=== PATIENT | female | born 1970 | race Caucasian/White ===

== ENCOUNTER 2016-05-19 | Outpatient (CLI) | payer MEDICAID | END 2016-05-19 11:15 | disposition home or self-care (01) ==

== ENCOUNTER 2016-05-24 13:04 | Outpatient (CLI) | payer MEDICAID | END 2016-05-24 13:05 | disposition home or self-care (01) | DX: R60.0 Localized edema (principal); R53.83 Other fatigue ==

== ENCOUNTER 2016-05-26 09:33 | Outpatient (CLI) | payer MEDICAID | END 2016-05-26 09:34 | disposition home or self-care (01) | DX: R13.19 Other dysphagia (principal) ==

== ENCOUNTER 2016-07-04 10:52 | Outpatient (CLI) | payer MEDICAID | END 2016-07-04 10:53 | disposition home or self-care (01) | DX: M17.11 Unilateral primary osteoarthritis, right knee (principal) ==

== ENCOUNTER 2016-10-03 13:06 | Outpatient (CLI) | payer MEDICAID | END 2016-10-03 13:07 | disposition home or self-care (01) | LOC: SC 13:06 | PROVIDERS: ATTEND Internal Medicine Pulmonary Disease | DX: G47.33 Obstructive sleep apnea (adult) (pediatric) (principal) | CPT/HCPCS: 99212; 99213 ==

== ENCOUNTER 2016-12-22 11:00 | Outpatient (CLI) | payer MEDICAID | END 2016-12-22 23:59 | disposition home or self-care (01) | LOC: RT.N 11:00 | PROVIDERS: ATTEND Family Medicine | DX: R07.9 Chest pain, unspecified (principal) | CPT/HCPCS: 93005 ==

== ENCOUNTER 2016-12-27 18:43 | Emergency (ER) | payer MEDICAID ==
[2016-12-27 19:38] VITALS: BP 149/94
--- NOTE | 2016-12-27 20:13 | ED Physician Documentation ---
PD HPI LOWER EXT INJURY - Stated complaint Stated Complaint: LUMP IN RT FOOT - Chief complaint Chief Complaint: Ext Problem - History obtained from History obtained from: Patient - History of Present Illness PD HPI LOW EXT INJURY LOCATION: Left, Foot Where injury occurred: Home Timing - onset: Yesterday Timing - details: Abrupt onset Worsened by: Moving, Palpating Contributing factors: No: Anticoagulated, Prior ortho surgery, Prosthetic joint Similar symptoms before: No diagnosis Recently seen: Not recently seen - Additional information Additional information: Patient is a 46 year old female who is presenting to the emergency department for foot pain. Patient states that she noticed it yesterday when she started walking on it. Patient denied any trauma. Patient states that she has had warts taken care of in the past. Review of Systems Constitutional: denies: Fever, Chills Eyes: reports: Reviewed and negative Ears: reports: Reviewed and negative Nose: reports: Reviewed and negative Throat: reports: Reviewed and negative Cardiac: denies: Chest pain / pressure GI: denies: Abdominal Pain, Nausea, Vomiting : reports: Reviewed and negative Skin: reports: Lesions. 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 : None HEENT: None Psych: Bipolar disorder Musculoskeletal: Osteoarthritis, Chronic back pain - Past Surgical History Past Surgical History: Yes General: Colonoscopy Ortho: Arthroscopic surgery, Spine surgery HEENT: Tonsil/Adenoidectomy - Present Medications Home Medications: Ambulatory Orders Medication Instructions Recorded Confirmed Ibuprofen [Motrin] 800 mg PO Q8H PRN #30 tablet 02/06/15 12/27/16 Tiotropium [Spiriva] 1 puffs INH DAILY #1 inhaler 02/06/15 12/27/16 Topiramate [Topamax] 200 mg PO DAILY #30 tablet 02/06/15 12/27/16 Albuterol Sulf [Ventolin Hfa 2 puffs INH PRN PRN 02/22/16 12/27/16 Inhaler] Beclomethasone Dipropionate [Qvar] 1 puffs INH BID 02/22/16 12/27/16 Lisinopril 20 mg PO DAILY 02/22/16 12/27/16 Lovastatin 10 mg PO DAILY 02/22/16 12/27/16 Methocarbamol [Robaxin] 1 tab PO TID 02/22/16 12/27/16 HYDROcodone/ACET 10/325 [[place] 10 3 - 4 tab PO PRN PRN 12/27/16 12/27/16 mg/325 mg] Nortriptyline [Pamelor] 2 tab PO DAILY 12/27/16 12/27/16 Pregabalin [Lyrica] 1 tab PO DAILY 12/27/16 12/27/16 Salicylic Acid [Wart Remover] 1 each TP DAILY #14 adh..patch 12/27/16 - Allergies Allergies/Adverse Reactions: Allergies Allergy/AdvReac Type Severity Reaction Status Date / Time celecoxib [From Celebrex] Allergy Unknown Verified 12/27/16 19:46 codeine Allergy Itching Verified 12/27/16 19:46 doxycycline Allergy Emesis Verified 12/27/16 19:46 morphine Allergy Hallucinati Verified 12/27/16 19:46 ons - Social History Does the pt smoke?: Yes Smoking Status: Current every day smoker Does the pt drink ETOH?: No Does the pt have substance abuse?: No - Immunizations Immunizations are current?: Yes - POLST Patient has POLST: No PD ED PE NORMAL - Vitals Vital signs reviewed: Yes - General General: Alert and oriented X 3, No acute distress - HEENT HEENT: Atraumatic, PERRL - Neck Neck: Supple, no meningeal sign - Cardiac Cardiac: RRR, No murmur - Respiratory Respiratory: No respiratory distress - Abdomen Abdomen: Soft - Derm Derm: Normal color, No rash - Extremities Extremities: No deformity - Neuro Neuro: Alert and oriented X 3, No motor deficit, No sensory deficit, Normal speech - Psych Psych: Normal mood, Normal affect PD ED PE EXPANDED - Extremities Extremities: Left foot (wart on plantar surface of left foot) Results - Vitals Vitals: Vital Signs - 24 hr 12/27/16 19:35 Temperature 36.6 C Heart Rate 93 Respiratory 18 Rate Blood Pressure 149/94 H O2 Saturation 99 Oxygen O2 Source Room air PD MEDICAL DECISION MAKING - ED course Complexity details: reviewed old records, reviewed results, considered differential, d/w patient ED course: Patient was seen and examined at bedside. Patient was well appearing and in no distress. Patient had a cut out bandage made for her lesion. patient required no further work up and was stable for discharge with outpatient follow up. Departure - Departure Disposition: 01 Home, Self Care Clinical Impression: Plantar wart of left foot Condition: Good Instructions: ED Warts Plantar Follow-Up: Vinicio Thrasher MD [Primary Care Provider] - Within 3 Days Prescriptions: Salicylic Acid [Wart Remover] 1 each TP DAILY #14 adh..patch Comments: Your symptoms today are being caused by a plantars wart. there is no abscess of fluid collection. You should wear the pads and follow up with your doctor on at your appointment. You can take motrin or tylenol as needed for pain. Discharge Date/Time: 12/27/16 20:22
== END 2016-12-27 20:22 | disposition home or self-care (01) ==
LOC: ED 18:43
DX: B07.0 Plantar wart (principal); F17.200 Nicotine dependence, unspecified, uncomplicated
CPT/HCPCS: 99283

== ENCOUNTER 2017-04-06 10:52 | Outpatient (CLI) | payer MEDICAID | END 2017-04-06 10:53 | disposition home or self-care (01) | LOC: SC 10:52 | PROVIDERS: ATTEND Nurse Practitioner Family | DX: G47.33 Obstructive sleep apnea (adult) (pediatric) (principal); R03.0 Elevated blood-pressure reading, without diagnosis of hypertension | CPT/HCPCS: 99212; 99214 ==

== ENCOUNTER 2017-05-23 11:17 | Outpatient (CLI) | payer MEDICAID | END 2017-05-23 11:18 | disposition home or self-care (01) | LOC: SC 11:17 | PROVIDERS: ATTEND Internal Medicine Pulmonary Disease | DX: G47.33 Obstructive sleep apnea (adult) (pediatric) (principal) | CPT/HCPCS: 99212; 99213 ==

== ENCOUNTER 2017-08-25 08:00 | Outpatient (CLI) | payer MEDICAID ==
[2017-08-25 19:07] LABS: BASOPHILS # (AUTO) 0.1 10^3/uL (0.0-0.1); BASOPHILS % (AUTO) 0.8 %; EOSINOPHILS # (AUTO) 0.2 10^3/uL (0.0-0.7); EOSINOPHILS % (AUTO) 1.4 %; HGB - HEMOGLOBIN 12.8 g/dL (12.0-16.0); LYMPHOCYTES # (AUTO) 2.4 10^3/uL (1.5-3.5); MEAN CORPUSCULAR HEMOGLOBIN 28.7 pg (27.0-31.0); MEAN CORPUSCULAR HGB CONC 31.9 g/dL (32.0-36.0); MEAN CORPUSCULAR VOLUME 89.9 fL (81.0-99.0); MEAN PLATELET VOLUME 9.9 fL (7.9-10.8); MONOCYTES # (AUTO) 0.8 10^3/uL (0.0-1.0); MONOCYTES % (AUTO) 6.1 %; NEUTROPHILS # (AUTO) 9.1 10^3/uL (1.5-6.6); NEUTROPHILS % (AUTO) 72.7 %; PLT - PLATELET COUNT 292 10^3/uL (130-450); RED BLOOD COUNT 4.47 10^6/uL (4.20-5.40); RED CELL DISTRIBUTION WIDTH 16.2 % (12.0-15.0); WHITE BLOOD COUNT 12.5 x10^3/uL (4.8-10.8)
[2017-08-25 19:22] LABS: ALBUMIN 3.5 g/dL (3.2-5.5); ALBUMIN/GLOBULIN RATIO 0.9 (1.0-2.2); ALKALINE PHOSPHATASE 100 IU/L (42-121); ALT ALANINE AMINOTRANSFERASE 20 IU/L (10-60); AST ASPARTATE AMINOTRANSFERASE 27 IU/L (10-42); BILIRUBIN,TOTAL 0.4 mg/dL (0.2-1.0); BUN - BLOOD UREA NITROGEN 15 mg/dL (6-20); CALCIUM 8.7 mg/dL (8.5-10.3); CARBON DIOXIDE - CO2 25 mmol/L (21-32); CHLORIDE 105 mmol/L (101-111); CHOL/HDL RATIO 4.1 (<4.4); CHOLESTEROL 156 mg/dL; CREATININE 0.9 mg/dL (0.4-1.0); GFR - MDRD 67 (>89); GLUCOSE 101 mg/dL (70-100); HDL CHOLESTEROL 38 mg/dL; LDL CHOLESTEROL,CALCULATED 81 mg/dL; LDL/HDL RATIO 2.1 (<4.4); SODIUM 138 mmol/L (135-145); TOTAL PROTEIN 7.2 g/dL (6.7-8.2); VLDL CHOLESTEROL 37 mg/dL
== END 2017-08-25 08:01 ==
LOC: LAB.N 08:00
PROVIDERS: ATTEND Family Medicine
DX: E66.9 Obesity, unspecified (principal); I10 Essential (primary) hypertension; E78.5 Hyperlipidemia, unspecified
CPT/HCPCS: 36415; 80053; 80061; 83721; 84443; 85025

== ENCOUNTER 2017-10-04 10:05 | Outpatient (CLI) | payer MEDICAID ==
--- NOTE | 2017-10-04 10:43 | XRAY Report ---
Procedure Date: 10/04/2017 Accession Number: [id number] / [id number] Procedure: XR - Foot 3 View LT CPT Code: FULL RESULT: EXAM: Foot 3 View LT DATE: 10/04/2017 10:20 AM CLINICAL HISTORY: FOOT PAIN COMPARISON: None. TECHNIQUE: 3 views. FINDINGS: Bones: Lucent line disrupting the navicular cortex through together with increased sclerosis, suggestive of stress fracture. Calcaneal heel spur. Joints: Normal. No subluxations. Soft Tissues: Midfoot soft tissue swelling. IMPRESSION: Suspect stress fracture of the left navicular. Clinically confirm by point tenderness on palpation. RADIA
== END 2017-10-04 10:06 | disposition home or self-care (01) ==
LOC: DI 10:05
PROVIDERS: ATTEND Anesthesiology Pain Medicine
DX: M79.672 Pain in left foot (principal)

== ENCOUNTER 2017-11-23 09:22 | Outpatient (CLI) | payer MEDICAID ==
--- NOTE | 2017-11-24 09:29 | XRAY Report ---
Reason: DEGENERATIVE JOINT DISEASE,KNEE PAIN BILATERAL Procedure Date: 11/23/2017 Accession Number: [id number] / [id number] Procedure: XR - Knee 3 View BILAT CPT Code: FULL RESULT: EXAMS: 1. Right Knee Radiography 2. Left Knee Radiography EXAM DATE:11/23/2017 09:46 AM. CLINICAL HISTORY:DEGENERATIVE JOINT DISEASE,KNEE PAIN BILATERAL. COMPARISON: 07/04/2016 right knee. TECHNIQUE: 3 views each. FINDINGS: Right Knee: Bones: No fractures or bone lesions. Joints: Advanced patellofemoral degenerative change with exuberant spurring. Medial greater than lateral knee joint space narrowing, spurring, and chondrocalcinosis. No joint effusion. Patellar enthesophytes. Soft Tissues: Unremarkable Left Knee: Bones: No fractures or bone lesions. Joints: Degenerative narrowing, and spurring most marked patellofemoral articulation and medial knee joint. Chondrocalcinosis. Patellar enthesophytes. No effusion. Soft Tissues: Unremarkable. IMPRESSION: Advanced osteoarthritic degenerative change bilateral knees, most severe at the patellofemoral articulations. RADIA
== END 2017-11-23 09:23 | disposition home or self-care (01) ==
LOC: DI 09:22
PROVIDERS: ATTEND Family Medicine
DX: M17.0 Bilateral primary osteoarthritis of knee (principal)

== ENCOUNTER 2018-01-08 10:30 | Outpatient (CLI) | payer MEDICAID ==
--- NOTE | 2018-01-08 16:39 | DEXA Report ---
Reason: LUMBAGO W/SCIATICA, LEFT SIDE Procedure Date: 01/08/2018 Accession Number: [id number] / [id number] Procedure: DEX - Dexa Spine and/or Hip CPT Code: FULL RESULT: EXAM: Dexa Spine and/or Hip DATE: 01/08/2018 11:10 AM CLINICAL HISTORY: LUMBAGO W/SCIATICA, LEFT SIDE. Inflammatory arthritis. TECHNIQUE: Dual energy x-ray absorptiometry (DXA) was performed on a [facility]. Regions measured are the AP Spine, femoral neck, and if needed forearm. COMPARISON: None. In accordance with the International Society for Clinical Densitometry (ISCD) guidelines, data from previous exams may be reanalyzed using current recommendations and techniques. This is done to allow a more accurate basis for comparison with the current study. FINDINGS: The data for the lumbar spine is as follows: BMD (g/cm/cm) T-SCORE Z-SCORE REGION L1 1.395 2.2 1.2 L2 1.449 2.1 1.0 L3 L4 TOTAL 1.422 2.1 1.1 NOTE: All evaluable vertebrae are used for classification The data for the hip is as follows: BMD (g/cm/cm) T-SCORE Z-SCORE REGION Neck 0.945 -0.7 -0.8 TOTAL 1.062 0.4 -0.1 NOTE: The femoral neck or total proximal femur, whichever is lowest, is used for classification. IMPRESSION: THE WHO CLASSIFICATION BASED ON THE INTERNATIONAL REFERENCE STANDARD IS NORMAL. THE FRACTURE RISK IS NOT INCREASED. RECOMMENDATION: Patients with diagnosis of osteoporosis or osteopenia should have regular bone mineral density assessment. For those eligible for Medicare, routine testing is allowed once every 2 years. Testing frequency can be increased for patients who have rapidly progressing disease or for those who are receiving medical therapy to restore bone mass. COMMENT: World Health Organization (WHO) definitions for osteoporosis and osteopenia: NORMAL BMD: T-score at -1.0 or higher, fracture risk is low OSTEOPENIA BMD: T-score between -1.0 and -2.5, fracture risk is increased. OSTEOPOROSIS BMD: T-score at -2.5 or lower, fracture risk is high. National Osteoporosis Foundation recommends: 1. Obtain adequate dietary calcium (at least 1200 mg per day) and vitamin D (400-800 international units per day). 2. Participate, as appropriate, in regular weightbearing and muscle-strengthening exercise. 3. Avoid tobacco use and reduce alcohol and caffeine intake. 4. For more detailed information see the website at www.NOF.org.
== END 2018-01-08 10:31 | disposition home or self-care (01) ==
LOC: DI 10:30
PROVIDERS: ATTEND Acupuncturist
DX: M54.42 Lumbago with sciatica, left side (principal)
CPT/HCPCS: 77080

== ENCOUNTER 2018-01-19 11:51 | Outpatient (CLI) | payer MEDICAID | END 2018-01-19 11:52 | disposition home or self-care (01) | LOC: LAB.N 11:51 | PROVIDERS: ATTEND Physician Assistant | DX: Z01.818 Encounter for other preprocedural examination (principal) | CPT/HCPCS: 81599 ==

== ENCOUNTER 2018-03-15 13:09 | Outpatient (CLI) | payer MEDICAID ==
[2018-03-15 19:21] LABS: BILIRUBIN,URINE NEGATIVE (NEGATIVE); GLUCOSE, URINE (UA) NEGATIVE (NEGATIVE); KETONES,URINE (UA) NEGATIVE (NEGATIVE); LEUKOCYTE ESTERASE, URINE NEGATIVE (NEGATIVE); NITRITE,URINE NEGATIVE (NEGATIVE); OCCULT BLOOD,URINE NEGATIVE (NEGATIVE); PROTEIN,URINE NEGATIVE (NEGATIVE); UROBILINOGEN,URINE 0.2 (NORMAL) E.U./dL (NORMAL)
[2018-03-15 19:27] LABS: CLARITY,URINE CLEAR (CLEAR)
== END 2018-03-15 13:10 | disposition home or self-care (01) ==
LOC: LAB.N 13:09
PROVIDERS: ATTEND Physician Assistant
DX: Z01.818 Encounter for other preprocedural examination (principal); G47.33 Obstructive sleep apnea (adult) (pediatric)
CPT/HCPCS: 81001; 81003; 87086; 99212; 99214

== ENCOUNTER 2018-04-09 21:50 | Outpatient (CLI) | payer MEDICAID | END 2018-04-09 23:59 | disposition critical access hospital (66) | LOC: EMS 23:59 | PROVIDERS: ATTEND Surgery | DX: M54.5 Low back pain (principal) | CPT/HCPCS: A0425; A0429; A0999 ==

== ENCOUNTER 2018-04-09 22:13 | Emergency (ER) | payer MEDICAID ==
[2018-04-09] MEDS ORDERED: SODIUM CHLORIDE 0.9% 1,000 ML IV ONE (23:58)
[2018-04-10 00:48] LABS: BASOPHILS # (AUTO) 0.1 10^3/uL (0.0-0.1); EOSINOPHILS # (AUTO) 0.7 10^3/uL (0.0-0.7); EOSINOPHILS % (AUTO) 5.4 %; HGB - HEMOGLOBIN 9.6 g/dL (12.0-16.0); LYMPHOCYTES # (AUTO) 2.4 10^3/uL (1.5-3.5); LYMPHOCYTES % (AUTO) 18.6 %; MEAN CORPUSCULAR HEMOGLOBIN 27.9 pg (27.0-31.0); MEAN CORPUSCULAR HGB CONC 32.5 g/dL (32.0-36.0); MEAN CORPUSCULAR VOLUME 85.8 fL (81.0-99.0); MEAN PLATELET VOLUME 8.1 fL (7.9-10.8); MONOCYTES # (AUTO) 0.7 10^3/uL (0.0-1.0); MONOCYTES % (AUTO) 5.5 %; NEUTROPHILS % (AUTO) 69.5 %; PLT - PLATELET COUNT 536 10^3/uL (130-450); RED BLOOD COUNT 3.44 10^6/uL (4.20-5.40); RED CELL DISTRIBUTION WIDTH 16.1 % (12.0-15.0)
[2018-04-10 00:54] LABS: ALBUMIN 2.8 g/dL (3.2-5.5); ALBUMIN/GLOBULIN RATIO 0.8 (1.0-2.2); BILIRUBIN,TOTAL 0.3 mg/dL (0.2-1.0); CREATININE 1.1 mg/dL (0.4-1.0); TOTAL PROTEIN 6.2 g/dL (6.7-8.2)
--- NOTE | 2018-04-10 01:44 | ED Physician Documentation ---
History of Present Illness - Stated complaint Stated Complaint: BACK PAIN - Chief complaint Chief Complaint: Back Pain - Additonal information Additional information: 47-year-old female was brought in by EMS for ongoing back pain and wound dr simental. The patient is status post spinal surgery at [facility] on March 23, 2018. The patient reports increased pain at home which is not been controlled. The patient reports increased wound drainage and saturating pads. The patient denies any fevers. The patient denies saddle anesthesia, urinary retention, motor weakness, sensory changes or acute focal neurologic changes. Symptoms are described as severe. No other associated symptoms. 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 HEENT: None Psych: Bipolar disorder Musculoskeletal: Osteoarthritis, Chronic back pain Derm: None - Past Surgical History Past Surgical History: Yes General: Colonoscopy Ortho: Arthroscopic surgery, Spine surgery HEENT: Tonsil/Adenoidectomy - Present Medications Home Medications: Ambulatory Orders Medication Instructions Recorded Confirmed Ibuprofen [Motrin] 800 mg PO Q8H PRN #30 tablet 02/06/15 12/27/16 Tiotropium [Spiriva] 1 puffs INH DAILY #1 inhaler 02/06/15 12/27/16 Topiramate [Topamax] 200 mg PO DAILY #30 tablet 02/06/15 12/27/16 Albuterol Sulf [Ventolin Hfa 2 puffs INH PRN PRN 02/22/16 12/27/16 Inhaler] Beclomethasone Dipropionate [Qvar] 1 puffs INH BID 02/22/16 12/27/16 Lisinopril 20 mg PO DAILY 02/22/16 12/27/16 Lovastatin 10 mg PO DAILY 02/22/16 12/27/16 Methocarbamol [Robaxin] 1 tab PO TID 02/22/16 12/27/16 HYDROcodone/ACET 10/325 [[place] 10 3 - 4 tab PO PRN PRN 12/27/16 12/27/16 mg/325 mg] Nortriptyline [Pamelor] 2 tab PO DAILY 12/27/16 12/27/16 Pregabalin [Lyrica] 1 tab PO DAILY 12/27/16 12/27/16 Salicylic Acid [Wart Remover] 1 each TP DAILY #14 adh..patch 12/27/16 - Allergies Allergies/Adverse Reactions: Allergies Allergy/AdvReac Type Severity Reaction Status Date / Time celecoxib [From Celebrex] Allergy Unknown Verified 04/09/18 22:19 codeine Allergy Itching Verified 04/09/18 22:19 doxycycline Allergy Emesis Verified 04/09/18 22:19 morphine Allergy Hallucinati Verified 04/09/18 22:19 ons - Social History Does the pt smoke?: Yes Smoking Status: Current every day smoker Does the pt drink ETOH?: No Does the pt have substance abuse?: No - Immunizations Immunizations are current?: Yes - POLST Patient has POLST: No PD ED PE NORMAL - General General: Alert and oriented X 3, Other (Morbidly obese 47-year-old who appears uncomfortable and is moving all 4 extremities) - HEENT HEENT: Atraumatic, PERRL, EOMI, Ears normal - Cardiac Cardiac: RRR (Regular tachycardia), Strong equal pulses - Respiratory Respiratory: No respiratory distress - Abdomen Abdomen: Soft, Non tender - Extremities Extremities: No deformity - Neuro Neuro: Alert and oriented X 3, No motor deficit, Other (The patient is moving all 4 extremities, the patient appears to have equal strength bilaterally in her lower extremities. ) - Psych Psych: Normal mood PD ED PE EXPANDED - Derm SKin visual: 1 - laceration (There is a surgical incision, the wound is approximated, there is erythematous changes to the middle portion of the wound, there is no area of active drainage at this point. The patient has tenderness at the site of the erythematous changes.) Results - Vitals Vitals: Vital Signs - 24 hr 04/09/18 04/10/18 22:14 00:54 Temperature 36.6 C 37.0 C Heart Rate 105 H 97 Respiratory 20 16 Rate Blood Pressure 130/84 H 107/55 L O2 Saturation 100 98 Oxygen O2 Source Room air - Labs Labs: Laboratory Tests 04/10/18 04/10/18 04/10/18 00:33 00:33 00:33 WBC 13.0 H RBC 3.44 L Hgb 9.6 L Hct 29.5 L MCV 85.8 MCH 27.9 MCHC 32.5 RDW 16.1 H Plt Count 536 H MPV 8.1 Neut # (Auto) 9.0 H Lymph # (Auto) 2.4 Rankin # (Auto) 0.7 Eos # (Auto) 0.7 Baso # (Auto) 0.1 Absolute Nucleated RBC 0.00 Nucleated RBC % 0.0 ESR 4 Sodium 141 Potassium 4.1 Chloride 106 Carbon Dioxide 25 Anion Gap 10.0 BUN 17 Creatinine 1.1 H Estimated GFR (MDRD) 53 L Glucose 136 H Calcium 8.0 L Total Bilirubin 0.3 AST 18 ALT 17 Alkaline Phosphatase 100 C-React Prot High Sens Total Protein 6.2 L Albumin 2.8 L Globulin 3.4 Albumin/Globulin Ratio 0.8 L Lipase 18 L 04/10/18 00:33 WBC RBC Hgb Hct MCV MCH MCHC RDW Plt Count MPV Neut # (Auto) Lymph # (Auto) Rankin # (Auto) Eos # (Auto) Baso # (Auto) Absolute Nucleated RBC Nucleated RBC % ESR Sodium Potassium Chloride Carbon Dioxide Anion Gap BUN Creatinine Estimated GFR (MDRD) Glucose Calcium Total Bilirubin AST ALT Alkaline Phosphatase C-React Prot High Sens 51.3 Total Protein Albumin Globulin Albumin/Globulin Ratio Lipase PD MEDICAL DECISION MAKING - ED course ED course: After the initial evaluation, [facility] was contacted to discuss the case with the on-call spine surgeon. The transfer center gave the information to the spine surgeon and he recommended transfer to the emergency department for an urgent MRI to rule out any acute infection. The case was discussed with the emergency room physician Dr. Velasco who accepts the patient for transfer. ThePatient does have wound redness, there is no active drainage in the emergency department. I will hold antibiotics at this point until there is a definitive need for them. The findings and plan were discussed with the patient who understands and agrees. The patient will be transported by EMS Departure - Departure Disposition: 02 Transfer Acute Care Hosp Clinical Impression: Postoperative pain after spinal surgery, Wound drainage Condition: Fair
[2018-04-10] MEDS ORDERED: HYDROmorphone 1 MG/ML CARPUJECT IVP STA (02:03)
[2018-04-10 02:32] VITALS: BP 137/94
[2018-04-10 02:45] LABS: BILIRUBIN,URINE NEGATIVE (NEGATIVE); GLUCOSE, URINE (UA) NEGATIVE (NEGATIVE); KETONES,URINE (UA) NEGATIVE (NEGATIVE); LEUKOCYTE ESTERASE, URINE LARGE (NEGATIVE); NITRITE,URINE POSITIVE (NEGATIVE); OCCULT BLOOD,URINE SMALL (NEGATIVE); PH,URINE 6.5 PH (5.0-7.5); PROTEIN,URINE NEGATIVE (NEGATIVE); UROBILINOGEN,URINE 0.2 (NORMAL) E.U./dL (NORMAL)
[2018-04-10 02:55] LABS: CLARITY,URINE CLOUDY (CLEAR)
[2018-04-10 02:56] LABS: BACTERIA,URINE Many /HPF (None Seen); RBC,URINE 0-5 /HPF (0-5); SQUAMOUS EPITHELIAL CELL,UR MANY Squamous (<= Few)
== END 2018-04-10 03:35 | disposition short-term general hospital (02) ==
LOC: EDUNIT# → ED 22:13
DX: G89.18 Other acute postprocedural pain (principal); L53.9 Erythematous condition, unspecified; F17.200 Nicotine dependence, unspecified, uncomplicated
CPT/HCPCS: 36415; 80053; 81001; 83690; 85025; 85651; 86141; 96361; 96374; 99284; J1170; 81003; 87086

== ENCOUNTER 2018-04-10 03:40 | Outpatient (CLI) | payer MEDICAID | END 2018-04-10 03:41 | disposition short-term general hospital (02) | LOC: EMS 03:40 | PROVIDERS: ATTEND Surgery | DX: M54.5 Low back pain (principal) | CPT/HCPCS: A0170; A0425; A0428 ==

== ENCOUNTER 2018-04-20 08:00 | Outpatient (CLI) | payer MEDICAID ==
[2018-04-20 13:00] LABS: BASOPHILS # (AUTO) 0.1 10^3/uL (0.0-0.1); BASOPHILS % (AUTO) 1.2 %; EOSINOPHILS # (AUTO) 0.6 10^3/uL (0.0-0.7); EOSINOPHILS % (AUTO) 5.9 %; HGB - HEMOGLOBIN 9.9 g/dL (12.0-16.0); LYMPHOCYTES # (AUTO) 1.9 10^3/uL (1.5-3.5); LYMPHOCYTES % (AUTO) 18.3 %; MEAN CORPUSCULAR HEMOGLOBIN 28.1 pg (27.0-31.0); MEAN CORPUSCULAR VOLUME 85.2 fL (81.0-99.0); MEAN PLATELET VOLUME 9.5 fL (7.9-10.8); MONOCYTES # (AUTO) 0.7 10^3/uL (0.0-1.0); MONOCYTES % (AUTO) 6.6 %; NEUTROPHILS # (AUTO) 7.3 10^3/uL (1.5-6.6); PLT - PLATELET COUNT 416 10^3/uL (130-450); RED BLOOD COUNT 3.52 10^6/uL (4.20-5.40); RED CELL DISTRIBUTION WIDTH 16.8 % (12.0-15.0); WHITE BLOOD COUNT 10.7 x10^3/uL (4.8-10.8)
[2018-04-20 13:16] LABS: ALBUMIN/GLOBULIN RATIO 0.7 (1.0-2.2); ALKALINE PHOSPHATASE 115 IU/L (42-121); ALT ALANINE AMINOTRANSFERASE 24 IU/L (10-60); AST ASPARTATE AMINOTRANSFERASE 21 IU/L (10-42); BILIRUBIN,TOTAL 0.4 mg/dL (0.2-1.0); BUN - BLOOD UREA NITROGEN 9 mg/dL (6-20); CALCIUM 8.7 mg/dL (8.5-10.3); CARBON DIOXIDE - CO2 25 mmol/L (21-32); CHLORIDE 102 mmol/L (101-111); CREATININE 0.9 mg/dL (0.4-1.0); GFR - MDRD 67 (>89); GLUCOSE 136 mg/dL (70-100); SODIUM 135 mmol/L (135-145); TOTAL PROTEIN 7.2 g/dL (6.7-8.2); VANCOMYCIN,TROUGH 12.5 ug/mL (10.0-20.0)
== END 2018-04-20 23:59 | disposition home or self-care (01) ==
LOC: LAB.N 08:00
PROVIDERS: ATTEND Internal Medicine Infectious Disease
DX: M46.28 Osteomyelitis of vertebra, sacral and sacrococcygeal region (principal); M47.817 Spondylosis without myelopathy or radiculopathy, lumbosacral region; B95.62 Methicillin resistant Staphylococcus aureus infection as the cause of diseases classified elsewhere; M79.2 Neuralgia and neuritis, unspecified
CPT/HCPCS: 36415; 80053; 80202; 85025

== ENCOUNTER 2018-04-27 08:00 | Outpatient (CLI) | payer MEDICAID ==
[2018-04-27 13:37] LABS: BASOPHILS # (AUTO) 0.1 10^3/uL (0.0-0.1); BASOPHILS % (AUTO) 1.2 %; EOSINOPHILS # (AUTO) 0.4 10^3/uL (0.0-0.7); EOSINOPHILS % (AUTO) 4.2 %; HGB - HEMOGLOBIN 9.9 g/dL (12.0-16.0); LYMPHOCYTES # (AUTO) 1.5 10^3/uL (1.5-3.5); MEAN CORPUSCULAR HEMOGLOBIN 27.2 pg (27.0-31.0); MEAN CORPUSCULAR HGB CONC 32.5 g/dL (32.0-36.0); MEAN CORPUSCULAR VOLUME 83.5 fL (81.0-99.0); MONOCYTES # (AUTO) 0.6 10^3/uL (0.0-1.0); MONOCYTES % (AUTO) 6.5 %; NEUTROPHILS # (AUTO) 6.1 10^3/uL (1.5-6.6); NEUTROPHILS % (AUTO) 71.1 %; PLT - PLATELET COUNT 392 10^3/uL (130-450); RED BLOOD COUNT 3.63 10^6/uL (4.20-5.40); RED CELL DISTRIBUTION WIDTH 16.6 % (12.0-15.0); WHITE BLOOD COUNT 8.6 x10^3/uL (4.8-10.8)
[2018-04-27 13:51] LABS: ALBUMIN 3.1 g/dL (3.2-5.5); ALBUMIN/GLOBULIN RATIO 0.8 (1.0-2.2); ALKALINE PHOSPHATASE 116 IU/L (42-121); ALT ALANINE AMINOTRANSFERASE 23 IU/L (10-60); AST ASPARTATE AMINOTRANSFERASE 24 IU/L (10-42); BILIRUBIN,TOTAL < 0.2 mg/dL (0.2-1.0); BUN - BLOOD UREA NITROGEN 6 mg/dL (6-20); CALCIUM 8.3 mg/dL (8.5-10.3); CARBON DIOXIDE - CO2 26 mmol/L (21-32); CHLORIDE 99 mmol/L (101-111); CREATININE 0.8 mg/dL (0.4-1.0); GFR - MDRD 77 (>89); GLUCOSE 120 mg/dL (70-100); SODIUM 136 mmol/L (135-145); VANCOMYCIN,TROUGH 11.1 ug/mL (10.0-20.0)
== END 2018-04-27 23:59 | disposition home or self-care (01) ==
LOC: LAB.N 08:00
PROVIDERS: ATTEND Internal Medicine Infectious Disease
DX: M46.28 Osteomyelitis of vertebra, sacral and sacrococcygeal region (principal); M47.817 Spondylosis without myelopathy or radiculopathy, lumbosacral region; B95.62 Methicillin resistant Staphylococcus aureus infection as the cause of diseases classified elsewhere; M79.2 Neuralgia and neuritis, unspecified
CPT/HCPCS: 36415; 80053; 80202; 85025

== ENCOUNTER 2018-05-04 09:00 | Outpatient (CLI) | payer MEDICAID ==
[2018-05-04 13:33] LABS: BASOPHILS % (AUTO) 0.6 %; EOSINOPHILS # (AUTO) 0.6 10^3/uL (0.0-0.7); EOSINOPHILS % (AUTO) 7.4 %; HGB - HEMOGLOBIN 10.1 g/dL (12.0-16.0); LYMPHOCYTES # (AUTO) 1.6 10^3/uL (1.5-3.5); LYMPHOCYTES % (AUTO) 21.2 %; MEAN CORPUSCULAR HEMOGLOBIN 26.4 pg (27.0-31.0); MEAN CORPUSCULAR HGB CONC 31.5 g/dL (32.0-36.0); MEAN CORPUSCULAR VOLUME 83.9 fL (81.0-99.0); MEAN PLATELET VOLUME 9.2 fL (7.9-10.8); MONOCYTES # (AUTO) 0.7 10^3/uL (0.0-1.0); MONOCYTES % (AUTO) 9.6 %; NEUTROPHILS # (AUTO) 4.7 10^3/uL (1.5-6.6); NEUTROPHILS % (AUTO) 61.2 %; PLT - PLATELET COUNT 343 10^3/uL (130-450); RED BLOOD COUNT 3.81 10^6/uL (4.20-5.40); RED CELL DISTRIBUTION WIDTH 17.5 % (12.0-15.0); WHITE BLOOD COUNT 7.7 x10^3/uL (4.8-10.8)
[2018-05-04 14:27] LABS: ALBUMIN 2.8 g/dL (3.2-5.5); ALBUMIN/GLOBULIN RATIO 0.7 (1.0-2.2); ALKALINE PHOSPHATASE 125 IU/L (42-121); ALT ALANINE AMINOTRANSFERASE 29 IU/L (10-60); AST ASPARTATE AMINOTRANSFERASE 39 IU/L (10-42); BILIRUBIN,TOTAL 0.3 mg/dL (0.2-1.0); BUN - BLOOD UREA NITROGEN 9 mg/dL (6-20); CALCIUM 8.1 mg/dL (8.5-10.3); CARBON DIOXIDE - CO2 26 mmol/L (21-32); CHLORIDE 103 mmol/L (101-111); CREATININE 0.9 mg/dL (0.4-1.0); GFR - MDRD 67 (>89); GLUCOSE 101 mg/dL (70-100); SODIUM 138 mmol/L (135-145); TOTAL PROTEIN 6.9 g/dL (6.7-8.2); VANCOMYCIN,TROUGH 17.1 ug/mL (10.0-20.0)
== END 2018-05-04 23:59 | disposition home or self-care (01) ==
LOC: LAB.N 09:00
PROVIDERS: ATTEND Nurse Practitioner
DX: A49.02 Methicillin resistant Staphylococcus aureus infection, unspecified site (principal)
CPT/HCPCS: 36415; 80053; 80202; 85025

== ENCOUNTER 2018-05-11 08:00 | Outpatient (CLI) | payer MEDICAID ==
[2018-05-11 12:54] LABS: BASOPHILS # (AUTO) 0.1 10^3/uL (0.0-0.1); EOSINOPHILS # (AUTO) 0.5 10^3/uL (0.0-0.7); EOSINOPHILS % (AUTO) 6.5 %; HGB - HEMOGLOBIN 11.2 g/dL (12.0-16.0); LYMPHOCYTES # (AUTO) 1.5 10^3/uL (1.5-3.5); LYMPHOCYTES % (AUTO) 18.3 %; MEAN CORPUSCULAR HEMOGLOBIN 25.8 pg (27.0-31.0); MEAN CORPUSCULAR HGB CONC 31.2 g/dL (32.0-36.0); MEAN CORPUSCULAR VOLUME 82.5 fL (81.0-99.0); MEAN PLATELET VOLUME 9.4 fL (7.9-10.8); MONOCYTES # (AUTO) 0.6 10^3/uL (0.0-1.0); MONOCYTES % (AUTO) 6.6 %; NEUTROPHILS # (AUTO) 5.7 10^3/uL (1.5-6.6); NEUTROPHILS % (AUTO) 67.6 %; PLT - PLATELET COUNT 330 10^3/uL (130-450); RED BLOOD COUNT 4.36 10^6/uL (4.20-5.40); RED CELL DISTRIBUTION WIDTH 17.5 % (12.0-15.0); WHITE BLOOD COUNT 8.4 x10^3/uL (4.8-10.8)
[2018-05-11 13:11] LABS: ALBUMIN 3.2 g/dL (3.2-5.5); ALBUMIN/GLOBULIN RATIO 0.7 (1.0-2.2); ALKALINE PHOSPHATASE 128 IU/L (42-121); ALT ALANINE AMINOTRANSFERASE 23 IU/L (10-60); AST ASPARTATE AMINOTRANSFERASE 23 IU/L (10-42); BILIRUBIN,TOTAL 0.5 mg/dL (0.2-1.0); BUN - BLOOD UREA NITROGEN 7 mg/dL (6-20); CALCIUM 8.7 mg/dL (8.5-10.3); CARBON DIOXIDE - CO2 22 mmol/L (21-32); CHLORIDE 104 mmol/L (101-111); CHOL/HDL RATIO 6.8 (<4.4); CHOLESTEROL 244 mg/dL; GFR - MDRD 60 (>89); GLUCOSE 123 mg/dL (70-100); HDL CHOLESTEROL 36 mg/dL; LDL CHOLESTEROL,CALCULATED 178 mg/dL; LDL/HDL RATIO 4.9 (<4.4); SODIUM 137 mmol/L (135-145); TOTAL PROTEIN 7.6 g/dL (6.7-8.2); VANCOMYCIN,TROUGH 14.2 ug/mL (10.0-20.0); VLDL CHOLESTEROL 30 mg/dL
== END 2018-05-11 23:59 | disposition home or self-care (01) ==
LOC: LAB.N 08:00
PROVIDERS: ATTEND Nurse Practitioner
DX: A49.02 Methicillin resistant Staphylococcus aureus infection, unspecified site (principal); E78.5 Hyperlipidemia, unspecified; I10 Essential (primary) hypertension
CPT/HCPCS: 36415; 80053; 80061; 80202; 83721; 84443; 85025

== ENCOUNTER 2018-05-14 10:23 | Outpatient (CLI) | payer MEDICAID | END 2018-05-14 10:24 | disposition critical access hospital (66) | LOC: EMS 10:23 | PROVIDERS: ATTEND Surgery | DX: M79.602 Pain in left arm (principal) ==

== ENCOUNTER 2018-05-14 10:45 | Emergency (ER) | payer MEDICAID ==
--- NOTE | 2018-05-14 11:20 | ED Physician Documentation ---
PD HPI SKIN - Stated complaint Stated Complaint: PICC LINE PX - Chief complaint Chief Complaint: Ext Problem - History obtained from History obtained from: Patient - History of Present Illness Timing - onset: How many days ago (2-3 days of having some discomfort at PICC line site with her infusions of Vanco BID. No edema in hand. No fever nor any redness/drainage from PICC line area. Has PICC line for IV abx related to surgical infection of low back site. She is just finishing her IV dosings.) Timing - duration: Days Timing - details: Intermittant (when getting infusions) Location: LUE (at PICC line area, without edema per se, but she says it feels swollen in the area.) Quality / character: Burning, Swelling (locally). No: Discolored Associated symptoms: No: Fever, Myalgias, N/V/D Contributing factors: No: Recent illness Similar symptoms before: Has not had sx before Recently seen: Admitted (she was in [facility] for back surgical infection and getting IV abx home infusion. I got call from PA on service from [facility] who said the patient is now finished her Vano dosings and will be changed to PO Bactrim, that she will transmit in to [facility] in [place]. 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 HEENT: None Psych: Bipolar disorder Musculoskeletal: Osteoarthritis, Chronic back pain Derm: None - Past Surgical History Past Surgical History: Yes General: Colonoscopy Ortho: Arthroscopic surgery, Spine surgery HEENT: Tonsil/Adenoidectomy - Present Medications Home Medications: Ambulatory Orders Medication Instructions Recorded Confirmed Ibuprofen [Motrin] 800 mg PO Q8H PRN #30 tablet 02/06/15 04/10/18 Tiotropium [Spiriva] 1 puffs INH DAILY #1 inhaler 02/06/15 04/10/18 Albuterol Sulf [Ventolin Hfa 2 puffs INH PRN PRN 02/22/16 04/10/18 Inhaler] Beclomethasone Dipropionate [Qvar] 1 puffs INH BID 02/22/16 04/10/18 Methocarbamol [Robaxin] 500 mg PO TID 02/22/16 04/10/18 Nortriptyline [Pamelor] 30 mg PO DAILY 12/27/16 04/10/18 Pregabalin [Lyrica] 1,150 mg PO DAILY 12/27/16 04/10/18 oxyCODONE [Roxicodone] 10 mg PO TID 04/10/18 04/10/18 Vancomycin HCl 0 mg 05/14/18 - Allergies Allergies/Adverse Reactions: Allergies Allergy/AdvReac Type Severity Reaction Status Date / Time celecoxib [From Celebrex] Allergy Unknown Verified 05/14/18 11:00 codeine Allergy Itching Verified 05/14/18 11:00 doxycycline Allergy Emesis Verified 05/14/18 11:00 morphine Allergy Hallucinati Verified 05/14/18 11:00 ons - Social History Does the pt smoke?: Yes Smoking Status: Current every day smoker Does the pt drink ETOH?: No Does the pt have substance abuse?: No - Immunizations Immunizations are current?: Yes - POLST Patient has POLST: No PD ED PE NORMAL - Vitals Vital signs reviewed: Yes - General General: Alert and oriented X 3, No acute distress, Well developed/nourished - Neck Neck: Supple, no meningeal sign, No adenopathy - Cardiac Cardiac: RRR, No murmur - Respiratory Respiratory: Clear bilaterally - Derm Derm: Normal color, Warm and dry - Extremities Extremities: Other (PICC line with bandage in place left brachial area. No noted discharge, redness at the site seen through clear covering of the site. Some tenderness around the PICC site. Mild swelling of tissue perhaps, but hard to discern due to obese arm anyway. No obvious redness/cellulitic changes. Hand and forearm without edema. ) Results - Vitals Vitals: Vital Signs - 24 hr 05/14/18 05/14/18 10:48 14:00 Temperature 36.3 C L 37.6 C H Heart Rate 86 91 Respiratory 18 26 H Rate Blood Pressure 168/111 H 158/115 H O2 Saturation 96 100 Oxygen O2 Source Room air - Rads (name of study) duplex left arm Radiology: Prelim report reviewed (no clots seen. ), EMP read contemporaneously, See rad report PD MEDICAL DECISION MAKING - ED course Complexity details: reviewed results, considered differential, d/w patient, d/w finance consultant (PA from spine service in [facility] called prior to patient arrival. ) ED course: ED nurse removed PICC line prior to patient discharge. No noted infection at the site with dressing and line off. Departure - Departure Disposition: Home, Self Care Clinical Impression: Status post PICC central line placement Arm pain Qualifiers: Laterality: left Qualified Code(s): M79.602 - Pain in left arm Clinical Impression: (Ruled Out): DVT (deep venous thrombosis) Condition: Stable Record reviewed to determine appropriate education?: Yes Follow-Up: Deepti Saucedo DNP [Primary Care Provider] - Comments: Continue with your current rifampin and add the Bactrim prescribed by the [facility] specialist. They said there were submitting it electronically to the right aid in [place]. Continue your other usual me dications. There are no signs of clots on ultrasound. We removed her PICC line. Hopefully that was just irritating and will allow the arm to feel better. Discharge Date/Time: 05/14/18 14:13
[2018-05-14] MEDS ORDERED: oxyCODONE 5 MG TABLET PO STA (11:21)
--- NOTE | 2018-05-14 12:38 | Ultrasound Report ---
Reason: PICC line; with arm pain/swelling Procedure Date: 05/14/2018 Accession Number: [id number] / [id number] Procedure: US - Duplex Ext Veins Left CPT Code: FULL RESULT: EXAM: LEFT UPPER EXTREMITY VENOUS ULTRASOUND EXAM DATE: 05/14/2018 12:32 PM. CLINICAL HISTORY: PICC line; with arm pain/swelling. COMPARISON: None. TECHNIQUE: Real-time sonographic vascular imaging was performed by the pipe liner through the upper extremity utilizing both color-flow and Doppler spectral analysis. Multiple community service representative static images were saved for review. FINDINGS: Mildly limited evaluation by overlying bandage and body habitus. Internal Jugular Vein (IJV): Normal. Subclavian Vein (SCV): Normal. Axillary Vein : Normal. Cephalic Vein (superficial vein): Normal. Basilic Vein (superficial vein): Normal. Brachial Vein: Normal. Contralateral Side: Subclavian Vein: Normal. Other: None. IMPRESSION: No evidence for deep vein thrombosis. RADIA
[2018-05-14] MEDS ORDERED: SULFAMETH/TRIMETH DS 800/160 MG TABLET PO STA (12:49)
[2018-05-14 14:02] VITALS: BP 158/115
== END 2018-05-14 14:13 | disposition home or self-care (01) ==
LOC: EDUNIT# → ED 10:45
DX: M79.622 Pain in left upper arm (principal); M79.89 Other specified soft tissue disorders; Z45.2 Encounter for adjustment and management of vascular access device; F17.200 Nicotine dependence, unspecified, uncomplicated
CPT/HCPCS: 93971; 99283; A9270

== ENCOUNTER 2018-05-29 08:00 | Outpatient (CLI) | payer MEDICAID ==
[2018-05-29 19:31] LABS: BASOPHILS # (AUTO) 0.1 10^3/uL (0.0-0.1); BASOPHILS % (AUTO) 0.7 %; EOSINOPHILS # (AUTO) 0.4 10^3/uL (0.0-0.7); EOSINOPHILS % (AUTO) 3.5 %; LYMPHOCYTES # (AUTO) 2.7 10^3/uL (1.5-3.5); LYMPHOCYTES % (AUTO) 25.2 %; MEAN CORPUSCULAR HEMOGLOBIN 25.2 pg (27.0-31.0); MEAN CORPUSCULAR HGB CONC 31.3 g/dL (32.0-36.0); MEAN CORPUSCULAR VOLUME 80.5 fL (81.0-99.0); MEAN PLATELET VOLUME 9.8 fL (7.9-10.8); MONOCYTES # (AUTO) 0.7 10^3/uL (0.0-1.0); MONOCYTES % (AUTO) 6.2 %; NEUTROPHILS # (AUTO) 6.9 10^3/uL (1.5-6.6); NEUTROPHILS % (AUTO) 64.4 %; PLT - PLATELET COUNT 323 10^3/uL (130-450); RED BLOOD COUNT 4.36 10^6/uL (4.20-5.40); RED CELL DISTRIBUTION WIDTH 18.2 % (12.0-15.0); WHITE BLOOD COUNT 10.7 x10^3/uL (4.8-10.8)
[2018-05-29 19:33] LABS: ALBUMIN 3.3 g/dL (3.2-5.5); ALBUMIN/GLOBULIN RATIO 0.8 (1.0-2.2); BILIRUBIN,TOTAL 0.4 mg/dL (0.2-1.0); CALCIUM 8.6 mg/dL (8.5-10.3); CREATININE 0.8 mg/dL (0.4-1.0); TOTAL PROTEIN 7.5 g/dL (6.7-8.2)
== END 2018-05-29 23:59 | disposition home or self-care (01) ==
LOC: LAB.N 08:00
PROVIDERS: ATTEND Physician Assistant Medical
DX: A49.02 Methicillin resistant Staphylococcus aureus infection, unspecified site (principal)
CPT/HCPCS: 36415; 80053; 85025

== ENCOUNTER 2018-06-18 08:00 | Outpatient (CLI) | payer MEDICAID ==
[2018-06-18 12:43] LABS: BASOPHILS # (AUTO) 0.1 10^3/uL (0.0-0.1); BASOPHILS % (AUTO) 0.7 %; EOSINOPHILS # (AUTO) 0.2 10^3/uL (0.0-0.7); EOSINOPHILS % (AUTO) 2.4 %; HGB - HEMOGLOBIN 11.4 g/dL (12.0-16.0); LYMPHOCYTES # (AUTO) 1.9 10^3/uL (1.5-3.5); LYMPHOCYTES % (AUTO) 18.5 %; MEAN CORPUSCULAR HEMOGLOBIN 25.2 pg (27.0-31.0); MEAN CORPUSCULAR HGB CONC 31.3 g/dL (32.0-36.0); MEAN CORPUSCULAR VOLUME 80.4 fL (81.0-99.0); MEAN PLATELET VOLUME 9.1 fL (7.9-10.8); MONOCYTES # (AUTO) 0.7 10^3/uL (0.0-1.0); MONOCYTES % (AUTO) 6.6 %; NEUTROPHILS # (AUTO) 7.4 10^3/uL (1.5-6.6); NEUTROPHILS % (AUTO) 71.8 %; PLT - PLATELET COUNT 296 10^3/uL (130-450); RED BLOOD COUNT 4.53 10^6/uL (4.20-5.40); RED CELL DISTRIBUTION WIDTH 20.4 % (12.0-15.0); WHITE BLOOD COUNT 10.3 x10^3/uL (4.8-10.8)
[2018-06-18 13:12] LABS: PLATELET ESTIMATE, MANUAL NORMAL (130-450,000) (NORMAL); PLATELET MORPHOLOGY 1+ LARGE PLATELETS (NORMAL)
[2018-06-18 13:28] LABS: ALBUMIN 3.6 g/dL (3.2-5.5); ALBUMIN/GLOBULIN RATIO 0.9 (1.0-2.2); BILIRUBIN,TOTAL 0.3 mg/dL (0.2-1.0); CALCIUM 8.9 mg/dL (8.5-10.3); CREATININE 0.9 mg/dL (0.4-1.0); TOTAL PROTEIN 7.6 g/dL (6.7-8.2)
== END 2018-06-18 08:01 | disposition home or self-care (01) ==
LOC: LAB.N 08:00
PROVIDERS: ATTEND Physician Assistant Medical
DX: A49.02 Methicillin resistant Staphylococcus aureus infection, unspecified site (principal)
CPT/HCPCS: 36415; 80053; 85025

== ENCOUNTER 2018-08-30 08:20 | Outpatient (CLI) | payer MEDICAID ==
[2018-08-30 14:42] LABS: RHEUMATOID FACTOR NEGATIVE (Negative)
[2018-08-30 14:53] LABS: CRP - C-REACTIVE PROTEIN 4.5 mg/dL (0-1.0)
[2018-08-30 15:08] LABS: URIC ACID 5.6 mg/dL (2.6-7.2)
[2018-09-01 12:51] LABS: ANA SCREEN NEGATIVE (NEGATIVE)
== END 2018-08-30 23:59 | disposition home or self-care (01) ==
LOC: LAB.N 08:20
PROVIDERS: ATTEND Physician Assistant Medical
DX: M19.90 Unspecified osteoarthritis, unspecified site (principal)
CPT/HCPCS: 36415; 84550; 86038; 86140; 86430

== ENCOUNTER 2018-10-15 17:35 | Outpatient (CLI) | payer MEDICAID | END 2018-10-15 17:36 | disposition short-term general hospital (02) | LOC: EMS 17:35 | PROVIDERS: ATTEND Surgery | DX: M54.5 Low back pain (principal) | CPT/HCPCS: A0425; A0429; A0999 ==

== ENCOUNTER 2018-11-13 08:52 | Outpatient (CLI) | payer MEDICAID ==
[2018-11-13 10:23] VITALS: BP 154/90
--- NOTE | 2018-11-13 10:23 | SLEEP CARE CONSULTATION ---
Information from patient questionnaire entered by Virgen Xavier. I have reviewed and concur with the information entered by Virgen Xavier. This document represents the service I personally performed and the decisions made by me, Whitney Goff, RN, MSN, DRIP BOX TENDER. History of Present Illness Previous diagnosis: Mild, Obstructive Sleep Apnea-Hypopnea Syndrome AHI: 5.1 Reason for CPAP/BiPAP follow up: other (re-qualify for sleep study) Year and Where: 2016 - [facility] additional information: Changes since last seen is she had 2 back surgeries at [facility] in [place]. They were 10 days apart to have lumbar fushion from L2-to L5. 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 Thus there was a delay in return to come here for a repeat sleep study as planned last February. Evidently the pain was too much to pursue a sleep study at that time. Thus her goal today is to start the re-evaluation process again. She hopes to have her sleep study prior to next back surgery for repair of L1 fracture. Her current complaints are snoring, unrefreshed sleep, insomnia, frequent awakenings during the night, fatigue and excessive daytime sleepiness. The patient tells me that she normally goes to bed around 9-11pm pm, and it takes her approximately 20 to 120 minutes to fall asleep. She has been told that she snores loudly and irregularly at night. She has been observed to stop breathing in her sleep. She and her daughter share a room. She can recall waking up on the average of 5-10 times during the night. Most of the time she wakes up because of pain and gasping for air. She has occasionally awakened for her own snoring and choking There is a lot of tossing and turning in her sleep. Generally there is no recollection of dreams. She usually wakes up at 2am to 7am and does not feel refreshed. She usually does not have a morning headache. During the day she complains of feeling sleepy and fatigued. She has never fallen asleep while driving nor has any accident due to sleepiness. She usually naps for about 30-90 minutes during the day a couple times a week. If she naps, upon falling asleep during the day she admits todenies having vivid dreams. She reports sometimes having impaired concentration during the day. There is somniloquy (sleep talking) but no somnambulism (sleep walking). She has experienced sleep paralysis once long time ago that she feels was due to medication on at that time. She denies cataplexy, or symptoms of restless leg syndrome. Subjective Initial [place] Sleepiness Scale score: 14 Current [place] Sleepiness Scale score: 17 Allergies and Home Medications Known drug allergies: Yes (doxycycline, celebrex, morphine) Home medication list reviewed: Yes Allergy and home medication list: Ibuprofen 800mg tab TID QVAR Two puffs daily Topiramate 200mg tab daily Spiriva Two puffs daily Lyrica 150mg tab TID PROAIR Two puffs PRN Prilosec 20mg tab BID Oxycodone 10mg tab 5-6 tabs a day total 1 every 4 hours prn Nortriptyline 150mg HS Methocarbonal 500mg 1-2 tablets tid prn Imitrex Prn migraine lisinopril 5mg daily lovastatin 20mg HS lidocaine cream apply as needed Review of Systems Cardiovascular: reports: high blood pressure, leg or foot swelling Respiratory: reports: shortness of breath Gastrointestinal: reports: heartburn, difficulty swallowing Urinary: reports: incontinence (infrequent due to pain and urgency) Neurological: reports: headaches, gait or balance problems (uses walker for balance post laminectomy / fushion) Psychiatric: reports: Attention Deficit Hyperactivity, anxiety, mood disorder Ear/Nose/Throat: reports: nasal congestion, dry mouth/throat, tonsillectomy, wisdom teeth removed Endocrine: reports: sluggishness, too hot or cold, increased urination (nocturia) Musculoskeletal: reports: joint pain, back pain, joint swelling, muscle pain or cramping, mobility problems Immunologic: reports: sneezing, allergies to food or environment (environmental ) Physical Exam Blood Pressure: 154/90 Cuff size: long Heart Rate: 92 O2 Saturation: 98 Height: 5 ft 6 in Weight (kg): 156.489 kg Weight change since last visit: lost 11 pounds Body Mass Index: 55.7 BMI Classification: Class 3 HEENT: No craniofacial malformation Nostrils: patent to airflow Turbinates: normal Septum: midline Mouth and throat: narrow oropharynx Soft palate: long Hard palate: normal Uvula: normal Uvula visualization: 25% Mallampati Class III Tongue: normal in size (endentulous - dentures do not fit) Tonsils: absent bilaterally Chin and jaw: normal size and position Neck: normal w/o lymphadenopathy or thyromegaly Heart: regular rate and rhythm Lungs: clear bilaterally Abdomen: soft, non-tender Extremities: 1+ edema (to mid calf) Impression and Plan 1. Obstructive Sleep Apnea-Hypopnea Syndrome, previously diagnosed as mild in 2016, currently not treated. As noted in history, patient was unable to follow up with planned sleep study earlier this year due to pain post operatively and infection following lumbar fusion. She is still in pain but feels she can tolerate a sleep study and wants to complete before additional back surgery. Current symptoms include loud and irregular snoring, observed cessation of breath while asleep, gasping or choking in sleep, frequent awakening during the night, unrefreshed sleep, cognitive impairment, and excessive daytime sleepiness. Narrow oropharynx and obesity are common predisposing factors for obstructive sleep apnea-hypopnea syndrome. Essential hypertension can be caused by untreated apnea. In addition, hypertension, ADD, anxiety and mood disorder can also benefit from CPAP treatment. I recommend proceeding to polysomnography to confirm the diagnosis and to assess severity. Severity may be increased from weight gain of 20 pounds since last tested in 2016. If the patient has significant sleep disordered breathing, a manual CPAP titration study will also be performed to find the optimal treatment pressure. I informed the patient of what the sleep studies involve and after some discussion, obtained agreement to proceed. The pathophysiology of obstructive sleep apnea-hypopnea syndrome was discussed with the patient and health risks of cardiovascular and cerebrovascular disease if not treated. AASM brochure for obstructive sleep apnea-hypopnea syndrome given and reviewed. Risks of drowsy driving discussed in detail and patient advised to avoid long distance driving and to machine assembler for puller over at the first sign of drowsiness. Patient agreed to plan. For her questions about muscle relaxant before bedtime, I advised of increased risk of apnea / respiratory depression especially if combined and to clarify timing with her prescriber. She agreed with plan. * Schedule polysomnography +- manual CPAP titration study * Avoid long distance driving or driving when feeling sleepy. * Avoid alcohol, sedative and muscle relaxant around bedtime. * Attempt to lose weight. * Follow up with PCP for further evaluation of extremity edema and dysphagia and pain medication prescriber as discussed. * Review instructions provided by trained office staff on how to prepare for the sleep study. * Return for follow-up after sleep study completed. I spent 100% of this 45 minute visit face to face with the patient with greater than 50% of this was spent time counseling the patient and coordination of care.
== END 2018-11-13 08:53 | disposition home or self-care (01) ==
LOC: SC 08:52
PROVIDERS: ATTEND Nurse Practitioner Family
DX: G47.33 Obstructive sleep apnea (adult) (pediatric) (principal)
CPT/HCPCS: 99212; 99215

== ENCOUNTER 2018-12-25 11:46 | Outpatient (CLI) | payer MEDICAID ==
[2018-12-25 18:42] LABS: BASOPHILS # (AUTO) 0.1 10^3/uL (0.0-0.1); BASOPHILS % (AUTO) 0.5 %; EOSINOPHILS # (AUTO) 0.3 10^3/uL (0.0-0.7); EOSINOPHILS % (AUTO) 2.3 %; HGB - HEMOGLOBIN 12.3 g/dL (12.0-16.0); LYMPHOCYTES # (AUTO) 2.8 10^3/uL (1.5-3.5); LYMPHOCYTES % (AUTO) 20.7 %; MEAN CORPUSCULAR HEMOGLOBIN 25.1 pg (27.0-31.0); MEAN CORPUSCULAR HGB CONC 28.9 g/dL (32.0-36.0); MEAN CORPUSCULAR VOLUME 86.7 fL (81.0-99.0); MEAN PLATELET VOLUME 11.6 fL (7.9-10.8); MONOCYTES # (AUTO) 0.8 10^3/uL (0.0-1.0); MONOCYTES % (AUTO) 6.1 %; NEUTROPHILS # (AUTO) 9.3 10^3/uL (1.5-6.6); NEUTROPHILS % (AUTO) 69.6 %; PLT - PLATELET COUNT 412 10^3/uL (130-450); RED CELL DISTRIBUTION WIDTH 17.8 % (12.0-15.0); WHITE BLOOD COUNT 13.3 x10^3/uL (4.8-10.8)
[2018-12-25 19:02] LABS: HB2 TOTAL 13.5 g/dL; HEMOGLOBIN A1C 0.58 g/dL; HEMOGLOBIN A1C % 6.1 % (4.6-6.2)
[2018-12-25 19:06] LABS: ALBUMIN 3.7 g/dL (3.2-5.5); ALKALINE PHOSPHATASE 123 IU/L (42-121); ALT ALANINE AMINOTRANSFERASE 11 IU/L (10-60); AST ASPARTATE AMINOTRANSFERASE 15 IU/L (10-42); BILIRUBIN,TOTAL 0.4 mg/dL (0.2-1.0); BUN - BLOOD UREA NITROGEN 17 mg/dL (6-20); CARBON DIOXIDE - CO2 24 mmol/L (21-32); CHLORIDE 107 mmol/L (101-111); CHOL/HDL RATIO 3.3 (<4.4); CHOLESTEROL 154 mg/dL; CREATININE 0.9 mg/dL (0.4-1.0); GFR - MDRD 67 (>89); GLUCOSE 136 mg/dL (70-100); HDL CHOLESTEROL 46 mg/dL; LDL CHOLESTEROL,CALCULATED 85 mg/dL; LDL/HDL RATIO 1.8 (<4.4); SODIUM 140 mmol/L (135-145); TOTAL PROTEIN 7.5 g/dL (6.7-8.2); VLDL CHOLESTEROL 23 mg/dL
[2018-12-25 20:17] LABS: PLATELET ESTIMATE, MANUAL NORMAL (130-450,000) (NORMAL); PLATELET MORPHOLOGY 1+ GIANT PLATELETS (NORMAL)
== END 2018-12-25 23:59 | disposition home or self-care (01) ==
LOC: LAB.WCP 11:46
PROVIDERS: ATTEND Physician Assistant
DX: E78.5 Hyperlipidemia, unspecified (principal); R73.03 Prediabetes
CPT/HCPCS: 36415; 80053; 80061; 83036; 83721; 85025

== ENCOUNTER 2019-02-08 11:00 | Outpatient (CLI) | payer MEDICAID | END 2019-02-08 23:59 | disposition home or self-care (01) | LOC: LAB.R 11:00 | PROVIDERS: ATTEND Physician Assistant | DX: R35.0 Frequency of micturition (principal) | CPT/HCPCS: 87086 ==

== ENCOUNTER 2019-02-19 07:29 | Outpatient (CLI) | payer MEDICAID ==
[2019-02-19 15:10] LABS: BILIRUBIN,URINE NEGATIVE (NEGATIVE); GLUCOSE, URINE (UA) NEGATIVE (NEGATIVE); KETONES,URINE (UA) NEGATIVE (NEGATIVE); LEUKOCYTE ESTERASE, URINE TRACE (NEGATIVE); NITRITE,URINE NEGATIVE (NEGATIVE); OCCULT BLOOD,URINE NEGATIVE (NEGATIVE); PH,URINE 5.5 PH (5.0-7.5); PROTEIN,URINE NEGATIVE (NEGATIVE); UROBILINOGEN,URINE 0.2 (NORMAL) E.U./dL (NORMAL)
[2019-02-19 15:17] LABS: CLARITY,URINE CLEAR (CLEAR)
[2019-02-19 15:18] LABS: BACTERIA,URINE None Seen /HPF (None Seen); RBC,URINE None Seen /HPF (0-5); SQUAMOUS EPITHELIAL CELL,UR NONE SEEN (<= Few)
== END 2019-02-19 23:59 | disposition home or self-care (01) ==
LOC: LAB.R 07:29
PROVIDERS: ATTEND Physician Assistant
DX: R35.0 Frequency of micturition (principal)
CPT/HCPCS: 81001; 87086

== ENCOUNTER 2019-02-20 08:00 | Outpatient (CLI) | payer MEDICAID ==
[2019-02-20 18:42] LABS: BASOPHILS # (AUTO) 0.1 10^3/uL (0.0-0.1); BASOPHILS % (AUTO) 0.7 %; EOSINOPHILS # (AUTO) 0.5 10^3/uL (0.0-0.7); EOSINOPHILS % (AUTO) 3.4 %; HGB - HEMOGLOBIN 10.5 g/dL (12.0-16.0); LYMPHOCYTES # (AUTO) 2.6 10^3/uL (1.5-3.5); LYMPHOCYTES % (AUTO) 19.4 %; MEAN CORPUSCULAR HEMOGLOBIN 25.1 pg (27.0-31.0); MEAN CORPUSCULAR HGB CONC 29.9 g/dL (32.0-36.0); MEAN CORPUSCULAR VOLUME 83.8 fL (81.0-99.0); MEAN PLATELET VOLUME 11.7 fL (7.9-10.8); MONOCYTES # (AUTO) 0.6 10^3/uL (0.0-1.0); MONOCYTES % (AUTO) 4.4 %; NEUTROPHILS # (AUTO) 9.5 10^3/uL (1.5-6.6); NEUTROPHILS % (AUTO) 71.5 %; PLT - PLATELET COUNT 324 10^3/uL (130-450); RED BLOOD COUNT 4.19 10^6/uL (4.20-5.40); RED CELL DISTRIBUTION WIDTH 17.5 % (12.0-15.0); WHITE BLOOD COUNT 13.3 x10^3/uL (4.8-10.8)
== END 2019-02-20 23:59 | disposition home or self-care (01) ==
LOC: LAB.WCP 08:00
PROVIDERS: ATTEND Physician Assistant
DX: R94.8 Abnormal results of function studies of other organs and systems (principal)
CPT/HCPCS: 36415; 85025

== ENCOUNTER 2019-04-27 01:10 | Outpatient (CLI) | payer MEDICAID | END 2019-04-27 01:11 | disposition critical access hospital (66) | LOC: EMS 01:10 | PROVIDERS: ATTEND Surgery | DX: M54.5 Low back pain (principal) | CPT/HCPCS: A0425; A0429; A0999 ==

== ENCOUNTER 2019-04-27 01:28 | Emergency (ER) | payer MEDICAID ==
--- NOTE | 2019-04-27 01:56 | ED Physician Documentation ---
<Romeo Claire - Last Filed: 04/27/19 15:37> PD HPI BACK PAIN - Stated complaint Stated Complaint: LOW BACK PAIN - Chief complaint Chief Complaint: Back Pain - History obtained from History obtained from: Patient, EMS - History of Present Illness Timing - onset: Chronic Timing - details: Still present, Constant Pain level now: 10 Location: Lower, Right, Left Quality: Pain, Similar to prior episodes Associated symptoms: Weakness. No: Fever, Numbness, Incontinent of urine, Unable to urinate, Hematuria, Incontinent of stool Improves with: Rest, Position Worsened by: Movement Recently seen: Emergency Dept - Additional information Additional information: PMHx includes chronic back pain and back surgery at [facility] complicated by infe ction. BIBA. patient was at [facility] earlier today accompanying her son to a scheduled appointment he had there. per EMS report, patient was so drowsy during the visit that staff called 911 due to concern as to why she appeared to have such an altered mental status. she was brought by ambulance to [place] ED where tests were performed and she was then discharged. she was driven home to [facility] and was having such severe back pain that she could not get from the car to her front door and thus 911 was called and she is brought to [facility] ED Review of Systems Constitutional: reports: Reviewed and negative Cardiac: reports: Reviewed and negative Respiratory: reports: Cough. denies: Dyspnea GI: reports: Reviewed and negative : denies: Dysuria, Unable to Void, Incontinent Musculoskeletal: reports: Back pain Neurologic: reports: Other (unclear if patient is having weakness in kegs or just limited mobility due to severe back pain) PD PAST MEDICAL HISTORY - Past Medical History Past Medical History: Yes Cardiovascular: None Respiratory: COPD Neuro: None Endocrine/Autoimmune: None GI: None PRESIDENT: None : None HEENT: None Psych: Bipolar disorder Musculoskeletal: Osteoarthritis, Chronic back pain Derm: None - Past Surgical History Past Surgical History: Yes General: Colonoscopy Ortho: Arthroscopic surgery, Spine surgery HEENT: Tonsil/Adenoidectomy - Present Medications Home Medications: Ambulatory Orders Medication Instructions Recorded Confirmed Ibuprofen [Motrin] 800 mg PO Q8H PRN #30 tablet 02/06/15 04/10/18 Tiotropium [Spiriva] 1 puffs INH DAILY #1 inhaler 02/06/15 04/10/18 Albuterol Sulf [Ventolin Hfa 2 puffs INH PRN PRN 02/22/16 04/10/18 Inhaler] Beclomethasone Dipropionate [Qvar] 1 puffs INH BID 02/22/16 04/10/18 methocarbamoL [Robaxin] 500 mg PO TID 02/22/16 04/10/18 Nortriptyline [Pamelor] 30 mg PO DAILY 12/27/16 04/10/18 oxyCODONE [Roxicodone] 10 mg PO TID 04/10/18 04/10/18 Vancomycin HCl 0 mg 05/14/18 Pregabalin [Lyrica] 1 cap ORAL TID 09/12/18 09/12/18 - Allergies Allergies/Adverse Reactions: Allergies Allergy/AdvReac Type Severity Reaction Status Date / Time celecoxib [From Celebrex] Allergy Unknown Verified 04/27/19 01:37 codeine Allergy Itching Verified 04/27/19 01:37 doxycycline Allergy Emesis Verified 04/27/19 01:37 morphine Allergy Hallucinati Verified 04/27/19 01:37 ons - Social History Does the pt smoke?: Yes Smoking Status: Current every day smoker Does the pt drink ETOH?: No Does the pt have substance abuse?: No - Immunizations Immunizations are current?: Yes - POLST Patient has POLST: No PD ED PE NORMAL - Vitals Vital signs reviewed: Yes - General General: Alert and oriented X 3, Other (morbidly obese, NAD and asleep at times, appears to be in painful distress at other times) - HEENT HEENT: Moist mucous membranes - Neck Neck: Supple, no meningeal sign - Cardiac Cardiac: RRR, No murmur - Respiratory Respiratory: No respiratory distress, Clear bilaterally - Abdomen Abdomen: Soft, Non tender - Back Back: No spinal TTP - Extremities Extremities: No tenderness to palpate - Neuro Neuro: Alert and oriented X 3, Normal speech, Other (difficult to asses LE strength; movement of either leg causes severe pain . she is able to gradually plantarflex to 4/5 on right, 2/5 on left (patient says she has left sided foot drop)) Results - Rads (name of study) thoracolumbar xrays Radiology: Prelim report reviewed, See rad report PD MEDICAL DECISION MAKING - ED course Complexity details: reviewed old records, reviewed results, re-evaluated patient, considered differential, d/w patient ED course: records from [place] ED faxed here and reviewed by me; they corroborate the HPI although the notes reflect that patient was not significant altered in the ED. notes reflect that patient was drowsy at times but also c/o 15/10 back pain. testing included blood tests (cbc, bmp), EKG, and cxr. findings included mild leukocytosis and question as to positioning of one of the fixation screws; radiologists reading recommended dedicated thoracolumbar xrays but I do not see that these were performed. on [facility] ED arrival, patient c/o severe back pain that has strong positional and exertional components. shortly after ED arrival, she fell asleep and was noted to be sleeping for at least 2 hours. she would awaken to gentle tactile stimulus. she eventually resumed c/o severe low back pain that prevented her from being able to sit up or shift position from left lateral decubitus position. she needed to urinate but due to this limited mobility, the only option was to insert a prieto catheter. she was very anxious, often needing to be refocused on questions I was asking her. initially, she says she missed at least one dose of her regular pain medication (10mg oxycodone) because of the long day she has had, and I reasoned with her that we would give her this dose and see if this returns her to baseline level of symptom control. I went to recheck on her 30 minutes later and found that she had not taken the medication yet (it was in dosing cup at bedside); she could not provide a cogent reason for not having taken it yet, again is anxious and asks that she not be rushed. she was subsequently given 2mg IM dilaudid. thoracolumbar xrays performed. when I explained to her why these were being ordered, she began sobbing because she was afraid she would need more back surgery. subsequent attempts to try to mobilize patient were unsuccessful; nurses were unable to move patient to any significant degree from lying on her left side or flat on her back due to exacerbation of pain. of note, patient has been to this ED infrequently, and her ERWIN form does not suggest concerning pattern of prescription fills nor ED visits. I consulted [facility] hospitalist (Dr. William), who will evaluate patient in ED and discuss options. Care of patient turned over to Dr. Jerry at end of my shift pending disposition. Departure - Departure Disposition: 02 Transfer Acute Care Hosp Clinical Impression: Back pain Qualifiers: Back pain location: back pain in unspecified location Chronicity: acute Back pain laterality: bilateral Qualified Code(s): M54.9 - Dorsalgia, unspecified Condition: Good Discharge Date/Time: 04/27/19 15:40 <Karis Jerry - Last Filed: 04/28/19 07:10> Results - Vitals Vitals: Vital Signs - 24 hr 04/27/19 04/27/19 04/27/19 09:00 12:57 15:22 Temperature Heart Rate 82 77 88 Respiratory 18 18 20 Rate Blood Pressure 127/76 92/75 136/98 H O2 Saturation 98 100 100 04/27/19 15:23 Temperature 36.2 C L Heart Rate Respiratory Rate Blood Pressure O2 Saturation Oxygen O2 Source Room air - Labs Labs: Laboratory Tests 04/27/19 05:30 Urine Color YELLOW Urine Clarity CLEAR Urine pH 6.0 Ur Specific [place] 1.020 Urine Protein NEGATIVE Urine Glucose (UA) NEGATIVE Urine Ketones NEGATIVE Urine Occult Blood NEGATIVE Urine Nitrite NEGATIVE Urine Bilirubin NEGATIVE Urine Urobilinogen 0.2 (NORMAL) Ur Leukocyte Esterase NEGATIVE Ur Microscopic Review NOT INDICATED Urine Culture Comments NOT INDICATED PD MEDICAL DECISION MAKING - ED course ED course: Please see the addendum that I charted on this patient regarding further hospital course and disposition.
[2019-04-27] MEDS ORDERED: oxyCODONE 5 MG TABLET PO STA ×2 (04:36→13:50)
[2019-04-27] MEDS ORDERED: HYDROmorphone 1 MG/ML CARPUJECT IM STA (05:34)
[2019-04-27 05:41] LABS: BILIRUBIN,URINE NEGATIVE (NEGATIVE); GLUCOSE, URINE (UA) NEGATIVE (NEGATIVE); KETONES,URINE (UA) NEGATIVE (NEGATIVE); LEUKOCYTE ESTERASE, URINE NEGATIVE (NEGATIVE); NITRITE,URINE NEGATIVE (NEGATIVE); OCCULT BLOOD,URINE NEGATIVE (NEGATIVE); PROTEIN,URINE NEGATIVE (NEGATIVE); UROBILINOGEN,URINE 0.2 (NORMAL) E.U./dL (NORMAL)
[2019-04-27 05:46] LABS: CLARITY,URINE CLEAR (CLEAR)
--- NOTE | 2019-04-27 07:28 | XRAY Report ---
Reason: back pain Procedure Date: 04/27/2019 Accession Number: [id number] / [id number] Procedure: XR - ThoracoLumbar 2 View CPT Code: 24845 Final Report FULL RESULT: EXAM: THORACOLUMBAR SPINE RADIOGRAPHY EXAM DATE: 04/27/2019 06:07 AM. CLINICAL HISTORY: Back pain in a 48-year-old female, unable to lay flat or sit. No memory of trauma. Increasing low back pain over 2 days. History of prior back fusion surgery. COMPARISONS: CHEST 2 VIEW PA/LAT 05/26/2016 9:54 AM. LUMBAR SPINE W/O 07/03/2015 10:51 AM. TECHNIQUE: Frontal and cross table lateral views of the thoracic and lumbar spine. FINDINGS: Study technically limited due to patient position and body habitus. Alignment: Normal. No spondylolisthesis or scoliosis. Bones: Mild to moderate superior endplate compression deformity of the T12 vertebral body which appears chronic in nature, although not present on earlier study of 2014. No definite fracture, lytic or destructive process. Disks: Multilevel moderate to severe degenerative disk disease throughout the thoracic spine. Postsurgical changes lower thoracic and lumbar spine with disk replacement and fusion. Posterior metal and screws in satisfactory position without loosening or failure. Soft Tissues: Normal. The visualized lungs and bowel gas pattern are normal. IMPRESSION: Study mildly to moderately technically limited secondary to patient body habitus and position. No definite acute process or posttraumatic abnormality. Mild compression deformity of the superior endplate of the L1 vertebral body which appears chronic, but was not evident on earlier CT scan of June 2014. No definite acute fracture. Multilevel moderate to severe degenerative disk disease. Extensive disk space replacement and fusion through the lower thoracic and lumbar spine, intact. RADIA
--- NOTE | 2019-04-27 13:39 | ED Physician Documentation ---
ED Addendum - Addendum Addendum: 04/27/19 13:36 I assumed care from Dr. Claire this morning after he left. This patient clearly is in inordinate amounts of pain that is different from her chronic pain. She has Weakness to the point that she cannot lift her legs off the bed. She can wiggle the toes on the right foot tells me she has a chronic drop in the left foot. She is obese and I am unable to obtain quadricep or Achilles reflexes. Sensation is intact in the lower extremities but she complains of diminished sensation particularly in the right foot over the left foot. I felt like her lumbar imaging was concerning for some slippage of T12 on L1 above the fusion and with this neurologic exam I felt she needed to be transferred to [facility]. I immediately put a call out to [facility] push the images forward and I actually spoke to her original surgeon Dr. Bang. He is concerned about the changes on her imaging as well and would like her transferred there for his care. 04/27/19 15:31 Did asked the nurses to put an IV in the patient for transport she was complaining of more pain and was given oxycodone orally and then after the IV just prior to transport we gave her a milligram of Dilaudid and Zofran 4 mg. They are here to transport her to [facility].
[2019-04-27 15:23] VITALS: BP 136/98
[2019-04-27] MEDS ORDERED: HYDROmorphone 1 MG/ML CARPUJECT IVP STA (15:30)
[2019-04-27] MEDS ORDERED: ONDANSETRON 4 MG/2 ML VIAL IVP STA (15:30)
== END 2019-04-27 15:40 | disposition short-term general hospital (02) ==
LOC: EDUNIT# → ED 01:28
DX: M54.5 Low back pain (principal); G89.29 Other chronic pain; R53.1 Weakness; M51.34 Other intervertebral disc degeneration, thoracic region; Z98.1 Arthrodesis status; F41.9 Anxiety disorder, unspecified; E66.01 Morbid (severe) obesity due to excess calories; Z68.43 Body mass index [BMI] 50.0-59.9, adult; F17.200 Nicotine dependence, unspecified, uncomplicated
CPT/HCPCS: 72080; 81003; 96372; 96374; 99284; 99285; A9270; J1170; 81001; 87086

== ENCOUNTER 2019-04-27 15:48 | Outpatient (CLI) | payer MEDICAID | END 2019-04-27 15:49 | disposition short-term general hospital (02) | LOC: EMS 15:48 | PROVIDERS: ATTEND Surgery | DX: M54.9 Dorsalgia, unspecified (principal); R53.1 Weakness | CPT/HCPCS: A0425; A0428 ==

== ENCOUNTER 2019-06-09 19:29 | Outpatient (CLI) | payer MEDICAID | END 2019-06-09 19:30 | disposition critical access hospital (66) | LOC: EMS 19:29 | PROVIDERS: ATTEND Surgery | DX: R60.0 Localized edema (principal); M25.559 Pain in unspecified hip | CPT/HCPCS: A0425; A0429; A0999 ==

== ENCOUNTER 2019-06-09 19:52 | Emergency (ER) | payer MEDICAID ==
[2019-06-09 19:59] VITALS: BP 153/106
--- NOTE | 2019-06-09 20:11 | ED Physician Documentation ---
History of Present Illness - Stated complaint Stated Complaint: LE EDEMA - Chief complaint Chief Complaint: Ext Problem - History obtained from History obtained from: Patient (The patient is a 49-year-old female Who was discharged from [facility] on 06/07/2019 presents to our emergency department after she had been underneath the care of [facility] neurosurgery for the last 6 weeks after she had neurosurgery performed emergent spinal decompression surgery for cauda equina syndrome and was transferred to inpatient rehab and discharged 2 days ago.The patient indicates that she is a paraplegic from the waist down.She is here today after she felt like her legs were swelling and reports that she had been on Lasix at the hospital but they did not discharge her home with any LasixAnd she called her neurosurgeon at [facility] the patient states they told her that she should call her primary care provider the patient states she then called her primary care provider and was unable to speak to a physician she ultimately did not states that she spoke with a nurse hotline who told her to call 911 and come to the emergency department.The patient's primary complaint today is lower extremity swelling.She reports that her new baseline is she is unable to ambulate. I did request records from [facility] that does show that she underwent spinal decompression and fusion, it does not mention that she is a paraplegic, it does mention that she has chronic back pain and that did undergo spinal decompression and fusion. her discharge papers do mention that she was to receive a wheelchair.) Review of Systems Constitutional: reports: Reviewed and negative Eyes: reports: Reviewed and negative Ears: reports: Reviewed and negative Nose: reports: Reviewed and negative Throat: reports: Reviewed and negative Cardiac: reports: Reviewed and negative Respiratory: reports: Reviewed and negative GI: reports: Reviewed and negative : reports: Reviewed and negative Skin: reports: Reviewed and negative Musculoskeletal: reports: Other (b/l le edema) Neurologic: reports: Other (patient states chronic paraplegic from recent cauda equina syndrome) Psychiatric: reports: Reviewed and negative Endocrine: reports: Reviewed and negative Immunocompromised: reports: Reviewed and negative PD PAST MEDICAL HISTORY - Past Medical History Cardiovascular: None Respiratory: COPD Neuro: None Endocrine/Autoimmune: None GI: None 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 : None HEENT: None Psych: Bipolar disorder Musculoskeletal: Osteoarthritis, Chronic back pain Derm: None - Past Surgical History Past Surgical History: Yes General: Colonoscopy Ortho: Arthroscopic surgery, Spine surgery HEENT: Tonsil/Adenoidectomy - Present Medications Home Medications: Ambulatory Orders Medication Instructions Recorded Confirmed Ibuprofen [Motrin] 800 mg PO Q8H PRN #30 tablet 02/06/15 04/10/18 Tiotropium [Spiriva] 1 puffs INH DAILY #1 inhaler 02/06/15 04/10/18 Albuterol Sulf [Ventolin Hfa 2 puffs INH PRN PRN 02/22/16 04/10/18 Inhaler] Beclomethasone Dipropionate [Qvar] 1 puffs INH BID 02/22/16 04/10/18 methocarbamoL [Robaxin] 500 mg PO TID 02/22/16 04/10/18 Nortriptyline [Pamelor] 30 mg PO DAILY 12/27/16 04/10/18 oxyCODONE [Roxicodone] 10 mg PO TID 04/10/18 04/10/18 Vancomycin HCl 0 mg 05/14/18 Pregabalin [Lyrica] 1 cap ORAL TID 09/12/18 09/12/18 - Allergies Allergies/Adverse Reactions: Allergies Allergy/AdvReac Type Severity Reaction Status Date / Time celecoxib [From Celebrex] Allergy Unknown Verified 04/27/19 01:37 codeine Allergy Itching Verified 04/27/19 01:37 doxycycline Allergy Emesis Verified 04/27/19 01:37 morphine Allergy Hallucinati Verified 04/27/19 01:37 ons - Social History Does the pt smoke?: Yes Smoking Status: Current every day smoker Does the pt drink ETOH?: No Does the pt have substance abuse?: No - Immunizations Immunizations are current?: Yes - POLST Patient has POLST: No PD ED PE NORMAL - Vitals Vital signs reviewed: Yes - General General: Alert and oriented X 3, No acute distress, Well developed/nourished, Other (morbidly obese 49 y/o f in no distress, non toxic and non septic appearing) - HEENT HEENT: Atraumatic, PERRL, EOMI, Pharynx benign - Neck Neck: Supple, no meningeal sign, No JVD - Cardiac Cardiac: RRR, No murmur, Strong equal pulses - Respiratory Respiratory: No respiratory distress, Clear bilaterally - Abdomen Abdomen: Normal bowel sounds, Soft, Non tender, Non distended - Derm Derm: Warm and dry, Other - Extremities Extremities: No deformity, Other (2+ pitting symettrical edema to b/l le. ) - Neuro Neuro: Alert and oriented X 3, Other (chronic lower extremity weakness to bilateral lower extremities, patient states unable to bear weight, she is able to flex at the knees and hips bilaterally and able to plantar flex b/l feet and able to flex and extend bilateral great toes, decreased sensation to b/l le, diminished reflexes to b/l achilles and patellar, ) - Psych Psych: Normal mood, Normal affect Results - Vitals Vitals: Vital Signs - 24 hr 06/09/19 06/09/19 19:57 22:17 Temperature 37.0 C Heart Rate 93 108 H Respiratory 26 H 24 Rate Blood Pressure 153/106 H O2 Saturation 99 Oxygen O2 Source Room air - EKG (time done) 20:25 Rate: Other (no stemi) - Labs Labs: Laboratory Tests 06/09/19 06/09/19 06/09/19 20:20 20:20 20:20 WBC 9.6 RBC 3.76 L Hgb 8.9 L Hct 29.4 L MCV 78.2 L MCH 23.7 L MCHC 30.3 L RDW 19.2 H Plt Count 397 MPV 10.4 Neut # (Auto) 6.9 H Lymph # (Auto) 1.8 [place] # (Auto) 0.6 Eos # (Auto) 0.2 Baso # (Auto) 0.0 Absolute Nucleated RBC 0.00 Nucleated RBC % 0.0 PT 15.5 H INR 1.4 H APTT 32.7 Sodium 139 Potassium 3.7 Chloride 102 Carbon Dioxide 26 Anion Gap 11.0 BUN 8 Creatinine 0.7 Estimated GFR (MDRD) 89 Glucose 129 H Calcium 8.9 Magnesium 1.9 Total Bilirubin 0.5 AST 20 ALT 20 Alkaline Phosphatase 112 Total Creatine Kinase 112 Troponin I High Sens B-Natriuretic Peptide Total Protein 7.2 Albumin 3.6 Globulin 3.6 Albumin/Globulin Ratio 1.0 Lipase 15 L Urine Color Urine Clarity Urine pH Ur Specific [place] Urine Protein Urine Glucose (UA) Urine Ketones Urine Occult Blood Urine Nitrite Urine Bilirubin Urine Urobilinogen Ur Leukocyte Esterase Ur Microscopic Review Urine Culture Comments Urine HCG, Qual 06/09/19 06/09/19 06/09/19 20:20 20:20 20:30 WBC RBC Hgb Hct MCV MCH MCHC RDW Plt Count MPV Neut # (Auto) Lymph # (Auto) [place] # (Auto) Eos # (Auto) Baso # (Auto) Absolute Nucleated RBC Nucleated RBC % PT INR APTT Sodium Potassium Chloride Carbon Dioxide Anion Gap BUN Creatinine Estimated GFR (MDRD) Glucose Calcium Magnesium Total Bilirubin AST ALT Alkaline Phosphatase Total Creatine Kinase Troponin I High Sens 3.2 B-Natriuretic Peptide 106 H Total Protein Albumin Globulin Albumin/Globulin Ratio Lipase Urine Color YELLOW Urine Clarity CLEAR Urine pH 7.5 Ur Specific [place] 1.010 Urine Protein NEGATIVE Urine Glucose (UA) NEGATIVE Urine Ketones NEGATIVE Urine Occult Blood NEGATIVE Urine Nitrite NEGATIVE Urine Bilirubin NEGATIVE Urine Urobilinogen 1 (NORMAL) Ur Leukocyte Esterase NEGATIVE Ur Microscopic Review NOT INDICATED Urine Culture Comments NOT INDICATED Urine HCG, Qual NEGATIVE PD MEDICAL DECISION MAKING - ED course Complexity details: reviewed old records, reviewed results, re-evaluated patient (patient reexamined, she is no distress, dopp us shows no evidence of dvt, labs are unrremarkable with the exception of anemia, unsure of most recent hgb for her. she is denying chest pain, cough or sob. ), considered differential (chronic edema, chronic venous stasis, dvt, chf, pulmonary edema), d/w patient Departure - Departure Disposition: 01 Home, Self Care Clinical Impression: Bilateral lower extremity edema Chronic back pain Qualifiers: Back pain location: back pain in unspecified location Back pain laterality: unspecified Qualified Code(s): M54.9 - Dorsalgia, unspecified Condition: Stable Instructions: ED Edema Legs Bilateral Follow-Up: Nena Christian PA [Primary Care Provider] - Tomorrow Comments: follow up with your pcp on monday, call your neurosurgeon on monday to schedule follow up. Discharge Date/Time: 06/09/19 22:59
[2019-06-09 20:28] LABS: BASOPHILS % (AUTO) 0.4 %; EOSINOPHILS # (AUTO) 0.2 10^3/uL (0.0-0.7); EOSINOPHILS % (AUTO) 1.8 %; HGB - HEMOGLOBIN 8.9 g/dL (12.0-16.0); LYMPHOCYTES # (AUTO) 1.8 10^3/uL (1.5-3.5); LYMPHOCYTES % (AUTO) 18.9 %; MEAN CORPUSCULAR HEMOGLOBIN 23.7 pg (27.0-31.0); MEAN CORPUSCULAR HGB CONC 30.3 g/dL (32.0-36.0); MEAN CORPUSCULAR VOLUME 78.2 fL (81.0-99.0); MEAN PLATELET VOLUME 10.4 fL (7.9-10.8); MONOCYTES # (AUTO) 0.6 10^3/uL (0.0-1.0); MONOCYTES % (AUTO) 6.7 %; NEUTROPHILS # (AUTO) 6.9 10^3/uL (1.5-6.6); NEUTROPHILS % (AUTO) 71.7 %; PLT - PLATELET COUNT 397 10^3/uL (130-450); RED BLOOD COUNT 3.76 10^6/uL (4.20-5.40); RED CELL DISTRIBUTION WIDTH 19.2 % (12.0-15.0); WHITE BLOOD COUNT 9.6 x10^3/uL (4.8-10.8)
[2019-06-09 20:38] LABS: INR 1.4 (0.8-1.2); PT - PROTHROMBIN TIME 15.5 secs (9.9-12.6)
[2019-06-09 20:39] LABS: BILIRUBIN,URINE NEGATIVE (NEGATIVE); GLUCOSE, URINE (UA) NEGATIVE (NEGATIVE); KETONES,URINE (UA) NEGATIVE (NEGATIVE); LEUKOCYTE ESTERASE, URINE NEGATIVE (NEGATIVE); NITRITE,URINE NEGATIVE (NEGATIVE); OCCULT BLOOD,URINE NEGATIVE (NEGATIVE); PH,URINE 7.5 PH (5.0-7.5); PROTEIN,URINE NEGATIVE (NEGATIVE); UROBILINOGEN,URINE 1 (NORMAL) E.U./dL (NORMAL)
[2019-06-09 20:40] LABS: CLARITY,URINE CLEAR (CLEAR)
[2019-06-09 20:42] LABS: HCG UR QUAL NEGATIVE
[2019-06-09 20:42] LABS: ALBUMIN 3.6 g/dL (3.2-5.5); BILIRUBIN,TOTAL 0.5 mg/dL (0.2-1.0); CALCIUM 8.9 mg/dL (8.5-10.3); CREATININE 0.7 mg/dL (0.4-1.0); MAGNESIUM 1.9 mg/dL (1.7-2.8); TOTAL PROTEIN 7.2 g/dL (6.7-8.2)
[2019-06-09 20:45] LABS: PARTIAL THROMBOPLASTIN TIME 32.7 secs (24.9-33.3)
--- NOTE | 2019-06-09 21:20 | XRAY Report ---
Reason: sob Procedure Date: 06/09/2019 Accession Number: [id number] / [id number] Procedure: XR - Chest 1 View X-Ray CPT Code: 38441 Final Report FULL RESULT: EXAM: CHEST RADIOGRAPHY EXAM DATE: 06/09/2019 08:46 PM. CLINICAL HISTORY: Shortness of breath. COMPARISON: CHEST 2 VIEW PA/LAT 05/26/2016 9:54 AM. TECHNIQUE: 1 view. FINDINGS: Lungs/Pleura: Mild left basilar atelectasis. No lobar consolidation or pulmonary edema. No pleural effusion. No pneumothorax. Mediastinum: Within exam limitations, the cardiomediastinal contour is normal. Other: Postsurgical changes of thoracolumbar spine, incompletely imaged. IMPRESSION: Mild left basilar atelectasis. Otherwise no acute cardiopulmonary process. RADIA
[2019-06-09] MEDS ORDERED: oxyCODONE 5 MG TABLET PO STA (21:28)
--- NOTE | 2019-06-09 21:46 | Ultrasound Report ---
Reason: BL LE SWELLING DVT Procedure Date: 06/09/2019 Accession Number: [id number] / [id number] Procedure: US - Duplex Ext Veins Bilateral CPT Code: Final Report FULL RESULT: EXAM: BILATERAL LOWER EXTREMITY VENOUS ULTRASOUND EXAM DATE: 06/09/2019 09:32 PM. CLINICAL HISTORY: Bilateral lower extremity swelling. Clinical concern for DVT. COMPARISON: None. TECHNIQUE: Real-time sonographic vascular imaging was performed by the cvicu rn through the lower extremities utilizing both color-flow and Doppler spectral analysis. Multiple group sales representative static images were saved for review. FINDINGS: Right: Common Femoral Vein (CFV): Normal. CFV-GSV Junction: Normal. Profunda Femoral Vein (PFV): Normal. Femoral Vein (FV) Prox: Normal. Femoral Vein (FV) Mid: Normal. Femoral Vein (FV) Dist: Limited visualization. Popliteal Vein: Limited visualization. Posterior Tibial Veins: Limited visualization. Peroneal Veins: Limited visualization. Left: Common Femoral Vein (CFV): Normal. CFV-GSV Junction: Normal. Profunda Femoral Vein (PFV): Normal. Femoral Vein (FV) Prox: Normal. Femoral Vein (FV) Mid: Normal. Femoral Vein (FV) Dist: Limited visualization. Popliteal Vein: Limited visualization. Posterior Tibial Veins: Limited visualization. Peroneal Veins: Limited visualization. Other: None. IMPRESSION: No evidence of DVT from the common femoral vein to the mid superficial femoral veins bilaterally. Beyond that point, it is difficult to visualize the veins due to overlying subcutaneous edema. RADIA
== END 2019-06-09 22:59 | disposition home or self-care (01) ==
LOC: EDUNIT# → ED 19:52
DX: R60.0 Localized edema (principal); M54.9 Dorsalgia, unspecified; F17.200 Nicotine dependence, unspecified, uncomplicated
CPT/HCPCS: 36415; 51702; 71045; 80053; 81003; 81025; 82550; 83690; 83735; 83880; 84484; 85025; 85610; 85730; 93005; 93970; 99284; A9270; 81001; 87086

== ENCOUNTER 2019-06-09 22:54 | Outpatient (CLI) | payer MEDICAID | END 2019-06-09 22:55 | disposition home or self-care (01) | LOC: EMS 22:54 | PROVIDERS: ATTEND Surgery | DX: R60.0 Localized edema (principal); R52 Pain, unspecified; E66.01 Morbid (severe) obesity due to excess calories | CPT/HCPCS: A0425; A0428 ==

== ENCOUNTER 2019-07-15 18:01 | Outpatient (CLI) | payer MEDICAID | END 2019-07-15 18:02 | disposition EMS.NT | LOC: EMS 18:01 | PROVIDERS: ATTEND Surgery | DX: Z03.89 Encounter for observation for other suspected diseases and conditions ruled out (principal) ==

== ENCOUNTER → 2019-12-24 | Outpatient (CLI) | payer MEDICAID ==
[2019-12-24 18:15] LABS: BASOPHILS # (AUTO) 0.1 10^3/uL (0.0-0.1); BASOPHILS % (AUTO) 0.7 %; EOSINOPHILS # (AUTO) 0.2 10^3/uL (0.0-0.7); EOSINOPHILS % (AUTO) 2.1 %; HGB - HEMOGLOBIN 9.6 g/dL (12.0-16.0); LYMPHOCYTES % (AUTO) 18.3 %; MEAN CORPUSCULAR HEMOGLOBIN 22.7 pg (27.0-31.0); MEAN CORPUSCULAR HGB CONC 31.9 g/dL (32.0-36.0); MEAN CORPUSCULAR VOLUME 71.3 fL (81.0-99.0); MONOCYTES % (AUTO) 8.6 %; NEUTROPHILS # (AUTO) 7.6 10^3/uL (1.5-6.6); NEUTROPHILS % (AUTO) 69.6 %; PLT - PLATELET COUNT 137 10^3/uL (130-450); RED BLOOD COUNT 4.22 10^6/uL (4.20-5.40); RED CELL DISTRIBUTION WIDTH 20.9 % (12.0-15.0)
[2019-12-24 18:39] LABS: PLATELET ESTIMATE, MANUAL NORMAL (130-450,000) (NORMAL); PLATELET MORPHOLOGY NORMAL APPEARANCE (NORMAL)
[2019-12-24 18:49] LABS: ALBUMIN 2.6 g/dL (3.2-5.5); ALBUMIN/GLOBULIN RATIO 0.7 (1.0-2.2); ALKALINE PHOSPHATASE 107 IU/L (42-121); ALT ALANINE AMINOTRANSFERASE 16 IU/L (10-60); AST ASPARTATE AMINOTRANSFERASE 13 IU/L (10-42); BILIRUBIN,TOTAL 0.7 mg/dL (0.2-1.0); BUN - BLOOD UREA NITROGEN 15 mg/dL (6-20); CALCIUM 7.9 mg/dL (8.5-10.3); CARBON DIOXIDE - CO2 26 mmol/L (21-32); CHLORIDE 103 mmol/L (101-111); CHOL/HDL RATIO 14.1 (<4.4); CHOLESTEROL 113 mg/dL; CREATININE 1.4 mg/dL (0.4-1.0); GLUCOSE 96 mg/dL (70-100); HDL CHOLESTEROL 8 mg/dL; LDL CHOLESTEROL,CALCULATED 71 mg/dL; LDL/HDL RATIO 8.9 (<4.4); SODIUM 138 mmol/L (135-145); TOTAL PROTEIN 6.4 g/dL (6.7-8.2); VLDL CHOLESTEROL 34 mg/dL
[2019-12-24 20:24] LABS: HEMOGLOBIN A1c% 5.7 % (4.27-6.07)
== END ==
LOC: LAB.WCP 15:10
PROVIDERS: ATTEND Physician Assistant
DX: Z79.891 Long term (current) use of opiate analgesic (principal); R73.03 Prediabetes; Z68.43 Body mass index [BMI] 50.0-59.9, adult
CPT/HCPCS: 36415; 80053; 80061; 80307; 81599; 83036; 83721; 85025

== ENCOUNTER 2020-02-28 18:59 | Outpatient (CLI) | payer MEDICAID | END 2020-02-28 19:00 | disposition short-term general hospital (02) | LOC: EMS 18:59 | PROVIDERS: ATTEND Surgery | DX: M79.671 Pain in right foot (principal) | CPT/HCPCS: A0425; A0429 ==

== ENCOUNTER 2020-09-03 11:00 | Outpatient (CLI) | payer MEDICAID ==
--- NOTE | 2020-09-03 13:53 | XRAY Report ---
PROCEDURE: Ankle 3 View LT INDICATIONS: ANKLE PAIN, LEFT TECHNIQUE: 3 views of the ankle were acquired. COMPARISON: None FINDINGS: Bones: The ankle demonstrates medial subluxation of the tibia relative to the fibula which appears ch ronic with calcification of the ligaments medially. There is pseudoarticulation with the underside of the medial malleolus with indentation of the central tibial articular surface. Degenerative changes of the midfoot are seen. There are plantar and Achilles calcaneal spurs. Soft tissues: No tibiotalar joint effusion. Achilles tendon appears normal. IMPRESSION: 1. 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 2. The bones are demineralized likely due to disuse. Reviewed by: Jose Nunez on 09/03/2020 1:52 PM PDT Approved by: Jose Nunez on 09/03/2020 1:52 PM PDT Station ID: [id number]
== END 2020-09-03 11:01 | disposition home or self-care (01) ==
LOC: DI.N 11:00
PROVIDERS: ATTEND Family Medicine
DX: M81.0 Age-related osteoporosis without current pathological fracture (principal); R93.6 Abnormal findings on diagnostic imaging of limbs

== ENCOUNTER 2020-11-09 13:41 | Outpatient (CLI) | payer MEDICAID | END 2020-11-09 13:42 | disposition EMS.NT | LOC: EMS 13:41 | DX: Z03.89 Encounter for observation for other suspected diseases and conditions ruled out (principal) ==

== ENCOUNTER 2020-12-07 17:12 | Outpatient (CLI) | payer MEDICAID | END 2020-12-07 17:13 | disposition EMS.NT | LOC: EMS 17:12 | DX: Z03.89 Encounter for observation for other suspected diseases and conditions ruled out (principal) ==

== ENCOUNTER 2021-02-18 11:32 | Outpatient (CLI) | payer MEDICAID | END 2021-02-18 11:33 | disposition EMS.NT | LOC: EMS 11:32 | DX: Z03.89 Encounter for observation for other suspected diseases and conditions ruled out (principal) ==

== ENCOUNTER 2021-04-13 13:44 | Outpatient (CLI) | payer MEDICAID | END 2021-04-13 13:45 | disposition EMS.NT | LOC: EMS 13:44 | DX: Z03.89 Encounter for observation for other suspected diseases and conditions ruled out (principal) ==

== ENCOUNTER 2021-06-10 11:55 | Outpatient (CLI) | payer MEDICAID | END 2021-06-10 11:56 | disposition E | LOC: EMS 11:55 ==